=== PATIENT | male | born 1945 | race American Indian/Alaskan Native ===

== ENCOUNTER 2017-07-15 08:06 | Emergency (ER) | payer MEDICARE ==
[2017-07-15 08:24] VITALS: RESP 18; O2SAT 99
--- NOTE | 2017-07-15 09:20 | C.PDOC ---
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 Agnieszka Velazco, and by Dr. Olinda Contreras for evaluation of elevated PSA. Denies n/v/d, abdominal pain, urinary symptoms, or fever. Time Seen by Provider: 07/15/17 08:25 Chief Complaint (Nursing): Medical Clearance History Per: Patient History/Exam Limitations: no limitations Past Medical History Reviewed: Historical Data, Nursing Documentation, Vital Signs Vital Signs: Last Vital Signs Temp 97.7 F 07/15/17 08:17 Pulse 68 07/15/17 08:17 Resp 18 07/15/17 08:17 BP 124/72 07/15/17 08:17 Pulse Ox 99 07/15/17 11:29 - Medical History PMH: Atrial Fibrillation Family History: States: Unknown Family Hx - Social History Hx Alcohol Use: Yes Hx Substance Use: No - Immunization History Hx Tetanus Toxoid Vaccination: No Hx Influenza Vaccination: No Hx Pneumococcal Vaccination: No Review Of Systems Except As Marked, All Systems Reviewed And Found Negative. Constitutional: Negative for: Fever, Chills Cardiovascular: Negative for: Chest Pain, Palpitations Respiratory: Negative for: Cough, Shortness of Breath Gastrointestinal: Negative for: Nausea, Vomiting, Abdominal Pain, Diarrhea Genitourinary: Negative for: Dysuria, Frequency, Hematuria, Penile Discharge Neurological: Negative for: Headache, Dizziness Physical Exam - Physical Exam Appears: Non-toxic, No Acute Distress Skin: Normal Color, Warm, Dry Head: Atraumatic, Normacephalic Eye(s): bilateral: Normal Inspection Oral Mucosa: Moist Neck: Supple Chest: Symmetrical Cardiovascular: Rhythm Regular, No Murmur Respiratory: Normal Breath Sounds, No Rales, No Rhonchi, No Wheezing Gastrointestinal/Abdominal: Soft, No Tenderness Extremity: Capillary Refill (less than 2 seconds), No Deformity, No Swelling, Other (right upper extremity is contracted ) Neurological/Psych: Oriented x3, Normal Speech, Other (right sided weakness greater than left from previous CVA) ED Course And Treatment - Laboratory Results Result Diagrams: 07/15/17 09:40 07/15/17 09:40 O2 Sat by Pulse Oximetry: 99 (RA) Pulse Ox Interpretation: Normal Medical Decision Making Medical Decision Making: Spoke with Dr. Agnieszka Velazco, requesting routine lab work. Blood work, UA ordered and reviewed. Assessment: Elevated PSA Pt was evaluated at bedside by Dr. Agnieszka Velazco. Pt was given Cipro for UTI and was advised to follow up with Dr. Agnieszka Velazco. Disposition Discussed With Dr.: Krystle Velazco Doctor Will See Patient In The: ED Counseled Patient/Family Regarding: Studies Performed, Diagnosis, Need For Followup, Rx Given - Disposition Referrals: Krystle Velazco MD [Staff Provider] - Disposition: HOME/ ROUTINE Disposition Time: 11:25 Condition: STABLE Additional Instructions: follow up with Dr. Velazco in 2 days call to make an appointment take medicine as prescribed return to ER if symptoms worsens Prescriptions: Ciprofloxacin HCl [Cipro] 500 mg PO BID #20 tab Instructions: Urinary Tract Infection in Men (ED) Forms: [facility] (Mohawk), General Discharge Instructions - Clinical Impression Clinical Impression: Urinary tract infection - Scribe Statement The provider has reviewed the documentation as recorded by the Tashiibsusana Contreras All medical record entries made by the Tashiibe were at my direction and personally dictated by me. I have reviewed the chart and agree that the record accurately reflects my personal performance of the history, physical exam, medical decision making, and the department course for this patient. I have also personally directed, reviewed, and agree with the discharge instructions and disposition.
[2017-07-15 09:47] LABS: BASO % 0.6 % (0.0-2.0); EOS # 0.3 K/uL (0.0-0.7); EOS % 3.7 % (0.0-4.0); HEMOGLOBIN 14.6 g/dL (12.0-18.0); LYMPH # 1.8 K/uL (1.0-4.3); LYMPH % 25.4 % (20.0-40.0); MEAN CELL VOLUME 79.3 fL (80.0-94.0); MEAN CORPUSCULAR HEMOGLOBIN 25.5 pg (27.0-31.0); MEAN CORPUSCULAR HGB CONC 32.2 g/dL (33.0-37.0); MEAN PLATELET VOLUME 8.3 fL (7.2-11.7); MONO # 0.7 K/uL (0.0-0.8); MONO % 9.7 % (0.0-10.0); NEUT # 4.3 K/uL (1.8-7.0); NEUT % 60.6 % (50.0-75.0); NRBC % 0.2 % (0.0-2.0); RBC 5.73 Mil/uL (4.40-5.90); RED CELL DISTRIBUTION WIDTH 15.6 % (11.5-14.5); WHITE BLOOD COUNT 7.1 K/uL (4.8-10.8)
[2017-07-15 09:58] LABS: ALB/GLOB RATIO 1.2 (1.0-2.1); ALBUMIN 4.2 g/dL (3.5-5.0); ALT/SGPT 26 U/L (21-72); AST/SGOT 27 U/L (17-59); BLOOD UREA NITROGEN 19 mg/dL (9-20); CALCIUM 8.8 mg/dl (8.6-10.4); GFR AFRICAN-AMERICAN > 60; GFR NON-AFRICAN AMERICAN > 60
[2017-07-15 11:10] LABS: SQUAMOUS EPITHIAL 1 /hpf (0-5); URINE BACTERIA MOD (<OCC); URINE BILIRUBIN NEGATIVE (NEGATIVE); URINE BLOOD NEGATIVE (NEGATIVE); URINE CLARITY Hazy (Clear); URINE COLOR Yellow (YELLOW); URINE GLUCOSE (UA) NORMAL (Normal); URINE HYALINE CAST 0-2 /lpf (0-2); URINE LEUKOCYTE ESTERASE 3+ Leu/uL (Negative); URINE NITRATE NEGATIVE (NEGATIVE); URINE PROTEIN 1+ mg/dL (NEGATIVE); URINE UROBILINOGEN NORMAL mg/dL (0.2-1.0); WBC CLUMPS FEW /hpf
[2017-07-15 11:37] VITALS: BP 114/76; PULSE 72; TEMP 98.1
--- NOTE | 2017-07-16 17:19 | CON ---
DATE: UROLOGY CONSULTATION REQUESTED BY: Rangel Contreras MD. HISTORY OF PRESENT ILLNESS: The patient is a 72-year-old male with an elevated PSA. The patient was seen in the emergency room as an outpatient at [facility] on 07/15/2017. Mr. Archer reports that he has an elevated PSA. There is a positive family history of prostate carcinoma in his cousin. The patient voids with good urinary stream, good control. He has nocturia two to three times per night. No hematuria. No dysuria. No history of urinary tract infection. No history of urolithiasis. The patient has a significant past medical history. The patient drinks one pint of alcohol per day. He smokes one half-pack of cigarettes per day. The patient has history of previous cerebrovascular accident x2. 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 The patient had previous neurosurgery. The second cerebrovascular accident was related to atrial fibrillation. The patient reports no chest pain. The patient has hemiparesis. The patient is not able to walk. He uses a wheelchair. PHYSICAL EXAMINATION: GENERAL: The patient is a well-developed, well-nourished male appearing his stated age of 72. ABDOMEN: Soft, nontender, nondistended. No mass or organomegaly. BACK: No CVA tenderness. GENITALIA: Without inflammation. RECTAL: Normal sphincter tone. Prostate is enlarged. Prostate is approximately 35 to 40 g in size. Prostate is smooth and firm and symmetric without fixation, induration, or nodularity. IMPRESSION: Benign prostatic hypertrophy on physical examination. History of elevated serum PSA. Differential diagnosis of elevated prostate-specific antigen includes benign prostatic hypertrophy, prostatic inflammation, and/or prostate carcinoma. The patient has significant other medical problems including cerebrovascular disease, cardiovascular disease. The patient also has tobacco and alcohol use. RECOMMENDATION AND PLAN: Urinalysis. Urine culture. Serum PSA, total and percent free. Possible need for MRI. Possible need for prostate biopsy. I encouraged the patient to stop smoking and drinking alcohol. Further therapy to follow according to the patient's clinical course as well as results of above. Krystle Velazco MD cc: Rangel Contreras MD [facility] # [id number]
[2017-07-16 21:28] LABS: TOTAL PSA 6.8 ng/mL (< or = 4.0)
== END 2017-07-15 11:39 | disposition home or self-care (01) ==
LOC: C.ER 08:06
DX: N39.0 Urinary tract infection, site not specified (principal); N40.0 Benign prostatic hyperplasia without lower urinary tract symptoms

== ENCOUNTER 2017-10-07 07:05 | Day surgery (SDC) | payer MEDICARE, OTHER ==
[2017-09-17 09:11] VITALS: BMI 23.3
[2017-10-07 07:48] VITALS: O2SAT 100
[2017-10-07] MEDS ORDERED: Lactated Ringer's 1,000 ML IV ONE ×2 (10:40→11:15)
[2017-10-07] MEDS ORDERED: HYDROmorphone 0.5 mg/0.5 ml ISec IVP PRN (11:16)
--- NOTE | 2017-10-07 11:40 | PCM.SURG1 ---
Surgeon's Initial Post Op Note - Surgeon's Notes Surgeon: Agnieszka Velazco [employer] Crm Developer: none Type of Anesthesia: IV Sedation Pre-Operative Diagnosis: BPH. UTI Operative Findings: same Post-Operative Diagnosis: same Operation Performed: cysto. bilat rtg pyelogram. fulg of prostate. eua Specimen/Specimens Removed: urine Estimated Blood Loss: EBL {In ML}: 0 Blood Products Given: N/A Post-Op Condition: Good Date of Surgery/Procedure: 10/07/17 Time of Surgery/Procedure: 11:20
[2017-10-07 12:23] VITALS: BP 110/91; PULSE 82; RESP 18; TEMP 97
--- NOTE | 2017-10-07 15:25 | RAD ---
PROCEDURE: Intraoperative Fluoroscopy. HISTORY: UTI,BPH FINDINGS: Fluoroscopic assistance was provided for bilateral retrograde studies. Please refer to the operative report from Dr. ESQUIVEL, CAGUAS. Total fluoroscopic time (continuous mode) utilized during the procedure 7.9 (seconds). Total exam DLP: (mGy) 4.95
--- NOTE | 2017-10-07 18:06 | RAD ---
HISTORY: UTI,BPH COMPARISON: No prior. FINDINGS: BOWEL: Constipation without fecal impaction or obstruction. BONES: Normal. OTHER FINDINGS: None. IMPRESSION: No significant or acute findings to account for/ related to the clinical presentation.
--- NOTE | 2017-10-14 02:39 | OP ---
PROCEDURE DATE: 10/07/2017 UROLOGY OPERATIVE REPORT PREOPERATIVE DIAGNOSES: Benign prostatic hypertrophy. History of urinary tract infection. POSTOPERATIVE DIAGNOSES: Benign prostatic hypertrophy. History of urinary tract infection. PROCEDURE: Cystoscopy. Bilateral retrograde pyelogram. Fulguration of prostate. Exam under anesthesia. DESCRIPTION OF PROCEDURE: As follows. The patient was placed in lithotomy position. Genitalia prepped and draped sterilely. Preop perioperative antibiotics were administered. IV sedation was administered by the anesthesiologist. Procedure was performed under video endoscopic control as well as under fluoroscopic control. A 22-Malawian cystoscope sheath was introduced under direct vision. Urethra, prostate, and bladder were inspected with 30-degree and 70-degree lenses. FINDINGS: There was no stricture in the anterior urethra. There was evidence of trilobar prostatic hypertrophy. There was a small intravesical middle lobe. There was moderate bladder trabeculation. There was moderate contact bleeding from the surface of the prostate. Prostatic urethra was occlusive. Prostatic urethra was 3.5 cm in length. There was moderate bladder trabeculation. There was no bladder tumor. There was no bladder stone. Retrograde pyelogram demonstrated no evidence of obstruction or filling defect within the ureters or collecting systems. Post drainage film was obtained as well and demonstrated fair to good drainage from the kidneys. The bladder was reinspected with 70-degree lens to confirm the above findings. The area of the bleeding from the prostate was fulgurated with electrocautery and ball electrode. Hemostasis was complete. The bladder was then drained. Cystoscope sheath removed. Exam under anesthesia/rectal examination was performed. There was prostatic enlargement, which was firm and smooth and benign and symmetric without fixation, induration or nodularity. There was no abnormal pelvic mass. The patient was returned to the supine position. The patient tolerated the procedure without complication. Krystle Velazco MD
== END 2017-10-07 12:37 | disposition home or self-care (01) ==
LOC: C.SDS 07:05
PROVIDERS: ATTEND Urology
DX: N40.1 Benign prostatic hyperplasia with lower urinary tract symptoms (principal); N39.0 Urinary tract infection, site not specified; N40.0 Benign prostatic hyperplasia without lower urinary tract symptoms
CPT/HCPCS: 52648; 74018; 76000; 87086; 87181; C1758; J7120

== ENCOUNTER 2018-03-07 13:47 | Inpatient (IN) | payer MEDICARE, OTHER ==
[2018-03-07 13:47] VITALS: BMI 23.3
[2018-03-07 15:34] LABS: BASO # 0.1 K/uL (0.0-0.2); BASO % 0.7 % (0.0-2.0); EOS # 0.3 K/uL (0.0-0.7); EOS % 2.7 % (0.0-4.0); HEMOGLOBIN 12.7 g/dL (12.0-18.0); LYMPH # 1.4 K/uL (1.0-4.3); LYMPH % 13.4 % (20.0-40.0); MEAN CELL VOLUME 76.2 fL (80.0-94.0); MEAN CORPUSCULAR HEMOGLOBIN 24.7 pg (27.0-31.0); MEAN CORPUSCULAR HGB CONC 32.4 g/dL (33.0-37.0); MEAN PLATELET VOLUME 8.1 fL (7.2-11.7); MONO % 9.7 % (0.0-10.0); NEUT # 7.7 K/uL (1.8-7.0); NEUT % 73.5 % (50.0-75.0); RBC 5.15 Mil/uL (4.40-5.90); RED CELL DISTRIBUTION WIDTH 14.2 % (11.5-14.5); WHITE BLOOD COUNT 10.4 K/uL (4.8-10.8)
[2018-03-07 15:39] LABS: SQUAMOUS EPITHIAL < 1 /hpf (0-5); URINE BACTERIA MOD (<OCC); URINE BILIRUBIN NEGATIVE (NEGATIVE); URINE BLOOD NEGATIVE (NEGATIVE); URINE CLARITY Clear (Clear); URINE COLOR Yellow (YELLOW); URINE GLUCOSE (UA) NORMAL (Normal); URINE PROTEIN 2+ mg/dL (NEGATIVE); URINE UROBILINOGEN NORMAL mg/dL (0.2-1.0)
[2018-03-07 15:40] LABS: URINE LEUKOCYTE ESTERASE 1+ Leu/uL (Negative)
[2018-03-07 15:45] LABS: ALB/GLOB RATIO 1.4 (1.0-2.1); ALBUMIN 4.2 g/dL (3.5-5.0); ALT/SGPT 26 U/L (21-72); AST/SGOT 21 U/L (17-59); BLOOD UREA NITROGEN 12 mg/dL (9-20); CALCIUM 9.1 mg/dl (8.6-10.4); GFR NON-AFRICAN AMERICAN > 60
--- NOTE | 2018-03-07 15:46 | C.PDOC ---
History Of Present Illness 72 y/o male with history of multiple strokes presents to ED with c/o lump to right side of neck associated with painful swallowing. Patient states he was recently treated for UTI, finished medication and called PMD for symptoms who advised he come to ED. Patient c/o mild headache since yesterday and denies ear pain, fever, chills, nausea, vomiting or any other complaints at this time. Time Seen by Provider: 03/07/18 14:34 Chief Complaint (Nursing): ENT Problem History Per: Patient History/Exam Limitations: no limitations Onset/Duration Of Symptoms: Days Current Symptoms Are (Timing): Still Present Past Medical History Reviewed: Historical Data, Nursing Documentation, Vital Signs Vital Signs: Last Vital Signs Temp 98.9 F 03/07/18 18:30 Pulse 65 03/07/18 18:30 Resp 18 03/07/18 18:30 BP 150/86 03/07/18 18:30 Pulse Ox 100 03/07/18 19:24 - Medical History PMH: Atrial Fibrillation, COPD, Depression, HTN, Pneumonia, Seizures Comment Only: Cardia Arrhythmia (SVT DURING COLONOSCOPY) Surgical History: Endoscopy Family History: States: No Known Family Hx - Social History Hx Alcohol Use: Yes Hx Substance Use: No - Immunization History Hx Tetanus Toxoid Vaccination: No Hx Influenza Vaccination: No Hx Pneumococcal Vaccination: No Review Of Systems Constitutional: Negative for: Fever, Chills ENT: Positive for: Throat Pain Cardiovascular: Negative for: Chest Pain Respiratory: Negative for: Cough Gastrointestinal: Negative for: Nausea, Vomiting Musculoskeletal: Positive for: Neck Pain Skin: Negative for: Rash Physical Exam - Physical Exam Appears: Non-toxic, No Acute Distress, Other (older than age) Skin: Warm, Dry, No Rash Head: Atraumatic, Normacephalic Eye(s): bilateral: Normal Inspection Oral Mucosa: Moist Throat: Erythema, No Drooling Neck: Other (tender firm mass to lateral right neck. Old tracheostomy scar) Cardiovascular: Rhythm Regular Respiratory: Normal Breath Sounds, No Rales, No Rhonchi, No Wheezing Gastrointestinal/Abdominal: Soft, No Tenderness, No Guarding, No Rebound Neurological/Psych: Oriented x3, Normal Speech, Normal Cognition ED Course And Treatment - Laboratory Results Result Diagrams: 03/07/18 15:30 03/07/18 15:30 O2 Sat by Pulse Oximetry: 100 (RA) Pulse Ox Interpretation: Normal - CT Scan/US soft tissue neck Other Rad Studies (CT/US): Radiology Report Reviewed CT/US Interpretation: Findings most likely represent a inflammatory/infectious process of the right submandibular gland with surrounding infiltration changes of the subcutaneous tissues and thickening of the platysma and skin surface. Inflammatory changes extend into the subcutaneous tissues of the submandibular region and base of neck anteriorly right greater than left. No evidence of submandibular gland or submandibular duct stones seen. Medical Decision Making Medical Decision Making: Plan: Labs, UA, CT neck, Pending creatinine for CT scan with or without Contrast discussed with Dr Agnieszka Todd, [facility] for uti, get uc. several calls made to hospitalist between 1830 pm and 1900, await return call [address] Benjie Contreras, will admit to Dr Patterson, overnight hospitalist. Disposition Discussed With DrDeni: Pedro Pablo Patterson Doctor Will See Patient In The: Hospital - Disposition Disposition: HOSPITALIZED Disposition Time: 19:42 Condition: GOOD Forms: [facility] (Spanish) - Clinical Impression Clinical Impression: Submandibular gland infection, Urinary tract infection - PA / INTEGRATION LEAD / Resident Statement MD/DO has reviewed & agrees with the documentation as recorded. - Scribe Statement The provider has reviewed the documentation as recorded by the Tashiibsusana Sandhu All medical record entries made by the Jesse were at my direction and personally dictated by me. I have reviewed the chart and agree that the record accurately reflects my personal performance of the history, physical exam, medical decision making, and the department course for this patient. I have also personally directed, reviewed, and agree with the discharge instructions and disposition.
[2018-03-07] MEDS ORDERED: Iodixanol 320 MG/ML 100 ML BOTTLE IV ONE (16:25)
--- NOTE | 2018-03-07 18:17 | CT ---
Date of service: 03/07/2018 PROCEDURE: CT NECK WITH CONTRAST HISTORY: mass right side neck COMPARISON: None available. TECHNIQUE: CT of the neck with intravenous contrast. Coronal and sagittal reformats generated. Intravenous contrast dose: 100 cc Visipaque [id number] Radiation dose: DLP 522.39 mGy-cm This CT exam was performed using one or more of the following dose reduction techniques: Automated exposure control, adjustment of the mA and/or kV according to patient size, and/or use of iterative reconstruction technique. FINDINGS: NASOPHARYNX: Unremarkable. SUPRAHYOID NECK: There Unremarkable oropharynx, oral cavity, parapharyngeal space and retropharyngeal space. INFRAHYOID NECK: Unremarkable larynx, hypopharynx, and supraglottic space. Vocal cords intact. MASS: None. GLANDS: The right submandibular gland is enlarged and edematous in appearance. In addition, there are infiltration changes in the adjacent subcutaneous fat surrounding the subcutaneous fat along the inferior margin of the gland more so along the inferolateral border. In addition, there is thickening of the platysma and infiltration changes of the subcutaneous fat superficial to the platysma as well extending inferiorly into the anterior inferior base of the neck of right greater than left. Findings most likely represent inflammatory and/or infectious process of the right submandibular gland. No definitive evidence of calculi along the within the gland or along the distribution of the submandibular duct. The the LYMPH NODES: Multiple bilateral level 1 and level 2 lymph nodes are present none of which appear significantly enlarged. CERVICAL SPINE: No evidence of acute compression fractures no retropulsed fragments. Vertebral bodies exhibit normal stature. There is reversal of the normal cervical lordosis which could be due to patient positioning gantry however underlying element of muscle spasm not excluded. VASCULAR STRUCTURES: Unremarkable. The visualized anterior and posterior cervical circulation is patent throughout with no evidence of occlusion significant stenosis or evidence of pseudoaneurysm formation. OTHER FINDINGS: There appears be some minimal linear atelectasis and or scarring changes both lung apices. IMPRESSION: Findings most likely represent a inflammatory/infectious process of the right submandibular gland with surrounding infiltration changes of the subcutaneous tissues and thickening of the platysma and skin surface. Inflammatory changes extend into the subcutaneous tissues of the submandibular region and base of neck anteriorly right greater than left. No evidence of submandibular gland or submandibular duct stones seen.
[2018-03-07] MEDS ORDERED: Piperacillin/Tazobact 3.375 gm 100 ML IVPB STA (18:31)
[2018-03-07] MEDS ORDERED: Vancomycin 1 GM in Sodium Chloride 0.9% 200 ML IVPB STA (18:35)
[2018-03-07] MEDS ORDERED: Piperacillin/Tazobact 3.375 gm 100 ML IVPB ONE (19:24)
[2018-03-07] MEDS ORDERED: Vancomycin 1 GM 1 GM/250 ML BAG IVPB ONE ×2 (20:07→21:00)
--- NOTE | 2018-03-07 23:06 | CP.PCM.HP ---
<SegundoNaeem M - Last Filed: 03/08/18 06:54> History of Present Illness - History of Present Illness History of Present Illness: PGY1 H&P for Dr. Patterson 72 M w/ PMHx of CVA with right sided weakness, HTN, paroxysmal atrial fibrillation, COPD, seizure, history of coma x 4 years (woke up mid 2015, during time of his coma he had tracheostomy) presents to ED with a right side lump in submandibular region. Patient states it appeared suddenly 3 days prior and was worse 1 day prior. Patient states it is tender on palpation and it is painful when eating. Patient states he was on antibiotics 1 weeks prior for a UTI that was treated by his urologist. Patient states he does have decreased breathing secondary to inflammation of his left nare that is currently being managed by his ENT outpatient. Patient denies chest pain, abdominal pain, constipation, trouble with urination. PMD: Dr. 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 absent: Nasal Congestion, Change in Voice, Hoarsness, Sore Throat - Cardiovascular Cardiovascular: absent: Chest Pain, Dyspnea, Leg Edema, Palpitations - Respiratory Respiratory: absent: Cough, Dyspnea, Pain on Inspiration - Gastrointestinal Gastrointestinal: absent: Bloating, Diarrhea, Nausea, Vomiting - Genitourinary Genitourinary: absent: Hematuria, Urinary Hesitance, Bladder Distension - Musculoskeletal Musculoskeletal: Muscle Weakness. absent: Arthralgias - Integumentary Integumentary: absent: Swelling - Neurological Neurological: absent: Behavioral Changes, Disequilibrium, Dizziness, Headaches - Psychiatric Psychiatric: absent: Behavioral Changes, Confusion, Mood Swings Past Patient History - Infectious Disease Hx of Infectious Diseases: None - Past Medical History & Family History Past Medical History?: Yes - Past Social History Smoking Status: Heavy Smoker > 10 Cigarettes Daily - CARDIAC Hx Atrial Fibrillation: Yes Hx Cardia Arrhythmia: (SVT DURING COLONOSCOPY) Hx Hypertension: Yes - PULMONARY Hx Chronic Obstructive Pulmonary Disease (COPD): Yes Hx Pneumonia: Yes - NEUROLOGICAL Hx Seizures: Yes - HEENT Hx HEENT Problems: No - RENAL Hx Chronic Kidney Disease: No - ENDOCRINE/METABOLIC Hx Endocrine Disorders: No - HEMATOLOGICAL/ONCOLOGICAL Hx Blood Disorders: No - INTEGUMENTARY Hx Dermatological Problems: Yes Other/Comment: DISCOLORIZATION BOTH FEET - MUSCULOSKELETAL/RHEUMATOLOGICAL Other/Comment: Uses wheelchair - GASTROINTESTINAL Hx Gastrointestinal Disorders: No - GENITOURINARY/GYNECOLOGICAL Hx Genitourinary Disorders: Yes Hx Prostate Problems: Yes Hx Urinary Tract Infection: Yes - PSYCHIATRIC Hx Depression: Yes Hx Substance Use: No - SURGICAL HISTORY Hx Surgeries: Yes Other/Comment: CRANIOTOMY s/p RUPTURED ANEURYSM, S/P TRACHEOSTOMY, S/P PEG - ANESTHESIA Hx Anesthesia: Yes Meds Allergies/Adverse Reactions: Allergies Allergy/AdvReac Type Severity Reaction Status Date / Time No Known Allergies Allergy Verified 03/07/18 14:18 Physical Exam - Head Exam Head Exam: ATRAUMATIC, NORMAL INSPECTION, NORMOCEPHALIC - Eye Exam Eye Exam: EOMI, Normal appearance, PERRL Pupil Exam: NORMAL ACCOMODATION - ENT Exam ENT Exam: Mucous Membranes Moist Additional comments: Patient has 1 cm scar from prior tracheostomy Submandibular gland inflammation on R side - Neck Exam Neck exam: Negative for: Lymphadenopathy - Respiratory Exam Respiratory Exam: NORMAL BREATHING PATTERN. absent: Rales, Rhonchi, Wheezes - Cardiovascular Exam Cardiovascular Exam: +S1, +S2. absent: Irregular Rhythm, Systolic Murmur - GI/Abdominal Exam GI & Abdominal Exam: Normal Bowel Sounds, Soft. absent: Distended, Firm, Guarding Additional comments: scar from previous peg tube insertion - Extremities Exam Extremities exam: Positive for: full ROM, normal inspection. 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 - Back Exam Back exam: absent: CVA tenderness (L), CVA tenderness (R) - Neurological Exam Neurological exam: Alert, CN II-XII Intact, Oriented x3 - Psychiatric Exam Psychiatric exam: Normal Affect, Normal Mood - Skin Skin Exam: Dry, Intact, Normal Color, Warm Results - Vital Signs Recent Vital Signs: Last Vital Signs Temp 98.4 F 03/07/18 22:16 Pulse 62 03/07/18 22:16 Resp 20 03/07/18 22:16 BP 136/81 03/07/18 22:16 Pulse Ox 100 03/07/18 22:16 - Labs Result Diagrams: 03/07/18 15:30 03/07/18 15:30 Labs: Laboratory Results - last 24 hr 03/07/18 03/07/18 03/07/18 15:20 15:30 15:30 WBC 10.4 RBC 5.15 Hgb 12.7 Hct 39.2 MCV 76.2 L D MCH 24.7 L MCHC 32.4 L RDW 14.2 Plt Count 256 MPV 8.1 Neut % (Auto) 73.5 Lymph % (Auto) 13.4 L [place] % (Auto) 9.7 Eos % (Auto) 2.7 Baso % (Auto) 0.7 Neut # (Auto) 7.7 H Lymph # (Auto) 1.4 [place] # (Auto) 1.0 H Eos # (Auto) 0.3 Baso # (Auto) 0.1 Sodium 140 Potassium 4.5 Chloride 105 Carbon Dioxide 27 Anion Gap 13 BUN 12 Creatinine 0.8 Est GFR ( Amer) > 60 Est GFR (Non-Af Amer) > 60 Random Glucose 87 Calcium 9.1 Total Bilirubin 0.5 AST 21 ALT 26 Alkaline Phosphatase 219 H Total Protein 7.1 Albumin 4.2 Globulin 3.0 Albumin/Globulin Ratio 1.4 Urine Color Yellow Urine Clarity Clear Urine pH 6.0 Ur Specific [place] 1.013 Urine Protein 2+ H Urine Glucose (UA) Normal Urine Ketones Negative Urine Blood Negative Urine Nitrate Negative Urine Bilirubin Negative Urine Urobilinogen Normal Ur Leukocyte Esterase 1+ H Urine WBC (Auto) 15 H Urine RBC (Auto) 1 Ur Squamous Epith Cells < 1 Urine Bacteria Mod H Grp A Beta Strep Ag 03/07/18 15:57 WBC RBC Hgb Hct MCV MCH MCHC RDW Plt Count MPV Neut % (Auto) Lymph % (Auto) [place] % (Auto) Eos % (Auto) Baso % (Auto) Neut # (Auto) Lymph # (Auto) [place] # (Auto) Eos # (Auto) Baso # (Auto) Sodium Potassium Chloride Carbon Dioxide Anion Gap BUN Creatinine Est GFR ( Amer) Est GFR (Non-Af Amer) Random Glucose Calcium Total Bilirubin AST ALT Alkaline Phosphatase Total Protein Albumin Globulin Albumin/Globulin Ratio Urine Color Urine Clarity Urine pH Ur Specific [place] Urine Protein Urine Glucose (UA) Urine Ketones Urine Blood Urine Nitrate Urine Bilirubin Urine Urobilinogen Ur Leukocyte Esterase Urine WBC (Auto) Urine RBC (Auto) Ur Squamous Epith Cells Urine Bacteria Grp A Beta Strep Ag Negative Assessment & Plan - Assessment and Plan (Free Text) Assessment: 72 year old male w/ PMHx CVA with right sided weakness, HTN, paroxysmal atrial fibrillation, COPD, seizure, history of coma x 4 years (woke up mid 2015, during time of his coma he had tracheostomy) presents to ED with a right side lump in submandibular region for 3 days: 1) Sialolithiasis - CT: Findings most likely represent a inflammatory/infectious process of the right submandibular gland with surrounding infiltration changes of the subcutaneous tissues and thickening of the platysma and skin surface. Inflammatory changes extend into the subcutaneous tissues of the submandibular region and base of neck anteriorly right greater than left. No evidence of submandibular gland or submandibular duct stones seen - Ceftriaxone 1g daily - Clindamyicin 300 mg Q6 - Toradol 30 mg once - F/u ENT Dr. Kateryna garrido 2) UTI - UA leukocyte esterase 1+ - WBC 15 - on ceftriaxone 1g daily 3) Hx of Alcohol use - unable to obtain when patients last drink was - transfer to [facility] - Folic acid, thiamine, multi vitamin - Librium 15 mg QID, hold if lethargic 4) Low MCV - F/u Iron levels 5) Hx HTN - currently on no medication, will monitor, add therapy as necessary 6) Hx Paroxymal Afib - continue home medication: Aspirin 81mg daily 7) Hx COPD - continue home medications: Advair Diskus 250/50 1 puff Q12 Mometasone 220 puff QPM 8) Hx Seizure - continue home medication: Phenytoin 100 mg BID Gabapentin 300 mg BID 9) Prophylaxis - DVT: heparin 5000 U Q12 [facility] <Pedro Pablo Patterson P - Last Filed: 03/08/18 07:26> Results - Vital Signs Recent Vital Signs: Last Vital Signs Temp 97.9 F 03/08/18 05:10 Pulse 55 L 03/08/18 05:10 Resp 20 03/08/18 05:10 BP 132/76 03/08/18 05:10 Pulse Ox 97 03/08/18 05:10 - Labs Result Diagrams: 03/07/18 15:30 03/07/18 15:30 Labs: Laboratory Results - last 24 hr 03/07/18 03/07/18 03/07/18 15:20 15:30 15:30 WBC 10.4 RBC 5.15 Hgb 12.7 Hct 39.2 MCV 76.2 L D MCH 24.7 L MCHC 32.4 L RDW 14.2 Plt Count 256 MPV 8.1 Neut % (Auto) 73.5 Lymph % (Auto) 13.4 L [place] % (Auto) 9.7 Eos % (Auto) 2.7 Baso % (Auto) 0.7 Neut # (Auto) 7.7 H Lymph # (Auto) 1.4 [place] # (Auto) 1.0 H Eos # (Auto) 0.3 Baso # (Auto) 0.1 Sodium 140 Potassium 4.5 Chloride 105 Carbon Dioxide 27 Anion Gap 13 BUN 12 Creatinine 0.8 Est GFR ( Amer) > 60 Est GFR (Non-Af Amer) > 60 Random Glucose 87 Calcium 9.1 Total Bilirubin 0.5 AST 21 ALT 26 Alkaline Phosphatase 219 H Total Protein 7.1 Albumin 4.2 Globulin 3.0 Albumin/Globulin Ratio 1.4 Urine Color Yellow Urine Clarity Clear Urine pH 6.0 Ur Specific [place] 1.013 Urine Protein 2+ H Urine Glucose (UA) Normal Urine Ketones Negative Urine Blood Negative Urine Nitrate Negative Urine Bilirubin Negative Urine Urobilinogen Normal Ur Leukocyte Esterase 1+ H Urine WBC (Auto) 15 H Urine RBC (Auto) 1 Ur Squamous Epith Cells < 1 Urine Bacteria Mod H Grp A Beta Strep Ag 03/07/18 15:57 WBC RBC Hgb Hct MCV MCH MCHC RDW Plt Count MPV Neut % (Auto) Lymph % (Auto) [place] % (Auto) Eos % (Auto) Baso % (Auto) Neut # (Auto) Lymph # (Auto) [place] # (Auto) Eos # (Auto) Baso # (Auto) Sodium Potassium Chloride Carbon Dioxide Anion Gap BUN Creatinine Est GFR ( Amer) Est GFR (Non-Af Amer) Random Glucose Calcium Total Bilirubin AST ALT Alkaline Phosphatase Total Protein Albumin Globulin Albumin/Globulin Ratio Urine Color Urine Clarity Urine pH Ur Specific [place] Urine Protein Urine Glucose (UA) Urine Ketones Urine Blood Urine Nitrate Urine Bilirubin Urine Urobilinogen Ur Leukocyte Esterase Urine WBC (Auto) Urine RBC (Auto) Ur Squamous Epith Cells Urine Bacteria Grp A Beta Strep Ag Negative Attending/Attestation - Attestation I have personally seen and examined this patient.: Yes I have fully participated in the care of the patient.: Yes I have reviewed all pertinent clinical information: Yes Notes (Text): Asssessment * Inflammation of right submandibular gland likely form obstruction of the duct , without abscess, patient not toxic, afebrile * H/o hemorrhagic stroke form ruptured aneurysm, coma with h/o trache and peg, now removed, has residual right arm contracture * H/o PAF, now sinus * Microcytic anemia * Tobacco and alcohol abuse. Plan * Abx, clinda and rocephin * prn anti-inflammatory, reduce duct swelling with massage * ENT consult * Iron studies if low iron, then should be evaluated by GI out patient * Librium scheduled, thiamine, mvt, fa, may need prn meds as well * Counselled about tobacco and alcohol cessation. * Gi/dvt prophylaxis 03/08/18 07:18
[2018-03-07] MEDS: Clindamycin 300 MG in Sodium Chloride 0.9% 50 ML IVPB SCH (23:50)
[2018-03-08] MEDS: Clindamycin 300 MG in Sodium Chloride 0.9% 50 ML IVPB SCH ×4 (04:35→23:25)
[2018-03-08] MEDS ORDERED: Fluticasone-Salmeterol 250-50mcg Diskus INH SCH (08:00)
[2018-03-08] MEDS: Multiple Vitamins Tab PO SCH (09:24)
--- NOTE | 2018-03-08 12:36 | CP.PCM.PN ---
<Js Lin - Last Filed: 03/08/18 16:20> Subjective - Date & Time of Evaluation Date of Evaluation: 03/08/18 Time of Evaluation: 09:30 - Subjective Subjective: PGY1 Medicine Progress Note for Dr. Hahn Patient was seen and examined this AM, resting comfortably and in no acute distress. No acute overnight events reported. Patient states it it somewhat difficult to eat due to partial obstruction from R sided submandibular swelling. We talked to him about a treatment of solumedrol for his swelling, per ENT recommendations. Patient was reluctant to receive solumedrol but agreed to initial dose treatment with further tx, if needed. No fevers/chill, headaches , dizziness, chest pain, palpitations, abdominal pain, nausea/vomiting/diarrhea/ constipation. Objective - Vital Signs/Intake and Output Vital Signs (last 24 hours): Temp Pulse Resp BP Pulse Ox 97.9 F 74 20 143/81 97 03/08/18 07:18 03/08/18 07:59 03/08/18 07:18 03/08/18 07:18 03/08/18 07:59 - Medications Medications: Current Medications Aspirin (Aspirin Chewable) 81 mg PO DAILY [facility] Last Admin: 03/08/18 09:23 Dose: 81 mg Chlordiazepoxide (Librium) 15 mg PO Q6 [facility] Last Admin: 03/08/18 12:06 Dose: Not Given Folic Acid (Folic Acid) 1 mg PO DAILY [facility] Last Admin: 03/08/18 09:24 Dose: 1 mg Gabapentin (Neurontin) 300 mg PO BID [facility] Last Admin: 03/08/18 09:24 Dose: 300 mg Heparin Sodium (Porcine) (Heparin) 5,000 units SC Q12 [facility] Last Admin: 03/08/18 09:25 Dose: Not Given Ceftriaxone Sodium 1 gm/ (Sodium Chloride) 100 mls @ 100 mls/hr IVPB DAILY [facility] PRN Reason: Protocol Last Admin: 03/08/18 10:37 Dose: 100 mls/hr Clindamycin Phosphate 300 mg/ (Sodium Chloride) 52 mls @ 100 mls/hr IVPB Q6H [facility] PRN Reason: Protocol Last Admin: 03/08/18 11:57 Dose: 100 mls/hr Multivitamins (Hexavitamin) 1 tab PO DAILY [facility] Last Admin: 03/08/18 09:24 Dose: 1 tab Phenytoin Sodium (Dilantin) 100 mg PO BID [facility] Last Admin: 03/08/18 09:24 Dose: 100 mg Fluticasone/Salmeterol (Advair Diskus 250/50) 1 puff INH RQ12 [facility] Thiamine HCl (Vitamin B1 Tab) 100 mg PO DAILY [facility] Last Admin: 03/08/18 09:24 Dose: 100 mg - Labs Labs: 03/07/18 15:30 03/07/18 15:30 - Constitutional Appears: Non-toxic, No Acute Distress - Head Exam Head Exam: ATRAUMATIC, NORMAL INSPECTION, NORMOCEPHALIC - Eye Exam Eye Exam: EOMI, Normal appearance - ENT Exam ENT Exam: Mucous Membranes Moist Additional comments: Marked inflammation of R submandibular gland, mild TTP - Neck Exam Neck Exam: Normal Inspection - Respiratory Exam Respiratory Exam: Clear to Ausculation Bilateral, NORMAL BREATHING PATTERN. absent: Rales, Rhonchi, Wheezes - Cardiovascular Exam Cardiovascular Exam: REGULAR RHYTHM, +S1, +S2 - GI/Abdominal Exam GI & Abdominal Exam: Soft, Normal Bowel Sounds. absent: Distended, Firm, Guarding, Rigid, Tenderness, Mass, Rebound - Extremities Exam Extremities Exam: Normal Capillary Refill, Normal Inspection. absent: Pedal Edema, Tenderness - Back Exam Back Exam: NORMAL INSPECTION - Neurological Exam Neurological Exam: Alert, Awake, Oriented x3 - Psychiatric Exam Psychiatric exam: Normal Affect, Normal Mood - Skin Skin Exam: Dry, Intact, Normal Color, Warm Assessment and Plan - Assessment and Plan (Free Text) Assessment: 72 M with PMHx of CVA with right sided weakness, HTN, paroxysmal atrial fibrillation, COPD, seizure, history of coma x 4 years (woke up mid 2015, during time of his coma he had tracheostomy) presents to ED with a right side lump in submandibular region. Plan: 1. Inflammation of R submandibular gland--likely 2/2 sialolithiasis, w/o abscess -patient is nontoxic, afebrile -f/u ENT recs (Dr. Avendaño) Imaging: -CT head (03/07): most likely represent a inflammatory/infectious process of the right submandibular gland with surrounding infiltration changes of the subcutaneous tissues and thickening of the platysma and skin surface. No evidence of submandibular gland or submandibular duct stones seen. Medications: -Rocephin 1 gm daily -Clindamycin 300 mg q6 -Toradol 30 mg Once -Solumedrol 125 mg IV Once 2. UTI - UA: LE 1+, bacteria moderate - WBC 10.4 - Rocephin 1gm daily 3. Hx of Alcohol use - unable to obtain when patient's last drink was - telemetry monitoring Medications -Folic acid 1 mg PO daily -Thiamine 100 mg PO daily -Multivitamin 1 tab PO daily - Librium 15 mg PO q6, hold if lethargic--pt refusing librium (03/08) 4. Low MCV - F/u Iron levels--pt refusing blood work (03/08) 5) Hx of HTN - currently on no medication, will monitor, add therapy as necessary 6. Hx Paroxymal Afib - continue home medication: -Aspirin 81mg daily 7. Hx of COPD - continue home medications: -Advair Diskus 250/50 1 puff Q12 - Mometasone 220 puff QPM 8. Hx of Seizure - continue home medication: -Phenytoin 100 mg BID - Gabapentin 300 mg BID 9. Prophylaxis, Diet, Disposition - DVT: heparin 5000 units SC Q12; SCDs - heart healthy diet Case discussed with Dr. Selma Lin DO, PGY1 <Jam Hahn H - Last Filed: 03/08/18 16:47> Objective - Vital Signs/Intake and Output Vital Signs (last 24 hours): Temp Pulse Resp BP Pulse Ox 99.0 F 62 20 152/88 H 97 03/08/18 15:00 03/08/18 15:11 03/08/18 15:00 03/08/18 15:00 03/08/18 15:15 - Medications Medications: Current Medications Aspirin (Aspirin Chewable) 81 mg PO DAILY [facility] Last Admin: 03/08/18 09:23 Dose: 81 mg Chlordiazepoxide (Librium) 15 mg PO Q6 [facility] Last Admin: 03/08/18 12:06 Dose: Not Given Folic Acid (Folic Acid) 1 mg PO DAILY [facility] Last Admin: 03/08/18 09:24 Dose: 1 mg Gabapentin (Neurontin) 300 mg PO BID [facility] Last Admin: 03/08/18 09:24 Dose: 300 mg Heparin Sodium (Porcine) (Heparin) 5,000 units SC Q12 [facility] Last Admin: 03/08/18 09:25 Dose: Not Given Ceftriaxone Sodium 1 gm/ (Sodium Chloride) 100 mls @ 100 mls/hr IVPB DAILY [facility] PRN Reason: Protocol Last Admin: 03/08/18 10:37 Dose: 100 mls/hr Clindamycin Phosphate 300 mg/ (Sodium Chloride) 52 mls @ 100 mls/hr IVPB Q6H [facility] PRN Reason: Protocol Last Admin: 03/08/18 11:57 Dose: 100 mls/hr Multivitamins (Hexavitamin) 1 tab PO DAILY [facility] Last Admin: 03/08/18 09:24 Dose: 1 tab Phenytoin Sodium (Dilantin) 100 mg PO BID [facility] Last Admin: 03/08/18 09:24 Dose: 100 mg Fluticasone/Salmeterol (Advair Diskus 250/50) 1 puff INH RQ12 [facility] Thiamine HCl (Vitamin B1 Tab) 100 mg PO DAILY [facility] Last Admin: 03/08/18 09:24 Dose: 100 mg - Labs Labs: 03/07/18 15:30 03/07/18 15:30 Attending/Attestation - Attestation I have personally seen and examined this patient.: Yes I have fully participated in the care of the patient.: Yes I have reviewed all pertinent clinical information, including history, physical exam and plan: Yes Notes (Text): 03/08/18 16:33 Medical attending: Patient was seen and examined by me. Agree with the above note by the resident The patient was not in any acute distress. Earlier we were advised by ENT to give solumedrol as this may help with the patient's symptoms. Will continue the IV abx for the time being as well. He was not having pain at rest. The area of swelling had already been outlined. It was mildy tender with palpation. Patient was not short of breath, he was speaking in full sentences. Overnight team was concerned of potential alcohol withdrawl, there is PRN orders for librium. Jam Hahn
[2018-03-08] MEDS ORDERED: Mometasone 220 mcg/puff-14 puff Inh INH SCH (18:00)
--- NOTE | 2018-03-08 20:15 | CON ---
DATE: 03/08/2018 REQUESTING PHYSICIAN: Pedro Pablo Patterson MD REASON FOR CONSULTATION: Sialadenitis. HISTORY: This is a 72-year-old male with a 4-day history of right neck mass which is moderate in size with pain. It was constant. The patient had outpatient antibiotic therapy which did not improve it. The patient was admitted to the hospital yesterday, was placed on IV antibiotic. The mass has gotten smaller and the pain has decreased to mild to moderate at this point. PAST MEDICAL HISTORY: As noted in the chart by me. MEDICATIONS: As noted in the chart by me. PHYSICAL EXAMINATION: HEAD: Atraumatic and normocephalic. FACE: Good facial movements bilaterally. CONSTITUTIONAL: Well fed, well nourished. COMMUNICATION: Communicates well and appropriately. EXTERNAL NOSE AND EARS: No masses, no lesions, no erythema, and no edema. INTERNAL NOSE: Deviated septum. No masses, no lesions, no erythema, and no edema. ORAL CAVITY AND OROPHARYNX: No masses, no lesions, no erythema, and no edema. LIPS AND GUMS: No masses, no lesions, no erythema, and no edema. NECK: There is an old trachea site that has healed. THYROID: No thyromegaly. No goiter. LYMPH NODES: No lymphadenopathy of the neck. LABORATORY DATA: CAT scan was reviewed by me, it revealed sialadenitis, it also revealed some tracheal stenosis at the area of the tracheostomy. The patient does have a small amount of noisy breathing; however, he is not short of breath. The CAT scan does not reveal severe tracheal stenosis. There is some stenosis but is fine at rest. ASSESSMENT: 1. Sialadenitis. 2. 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 RECOMMENDATIONS: Continue IV antibiotics. I may consider giving steroids to make it heal very sooner. Also recommend follow up with the doctor who did the tracheostomy in order to evaluate the tracheal stenosis. Srinivas Avendaño MD MTDNathanael
[2018-03-09] MEDS: Clindamycin 300 MG in Sodium Chloride 0.9% 50 ML IVPB SCH ×2 (05:19→11:47)
[2018-03-09] MEDS: Multiple Vitamins Tab PO SCH (09:19)
--- NOTE | 2018-03-09 12:10 | CP.PCM.PN ---
<Js Lin - Last Filed: 03/09/18 17:59> Subjective - Date & Time of Evaluation Date of Evaluation: 03/09/18 Time of Evaluation: 12:09 - Subjective Subjective: PGY-1 Medicine Progress Note for Dr. Hahn Patient was seen and examined at bedside this AM, resting comfortably and in no acute distress. No acute events reported overnight. Patient is tolerating diet well, no longer complaining of partial obstruction from R sided submandibular swelling. Swelling appears to have decreased; the area of the swelling is outlined. No shortness of breath and speaking in full sentences. No fevers/chill , headaches, dizziness, chest pain, palpitations, abdominal pain, nausea/ vomiting/diarrhea/constipation. Objective - Vital Signs/Intake and Output Vital Signs (last 24 hours): Temp Pulse Resp BP Pulse Ox 98.1 F 62 20 149/79 98 03/09/18 07:00 03/09/18 07:39 03/09/18 07:00 03/09/18 07:00 03/09/18 07:41 Intake and Output: 03/09/18 03/09/18 06:59 18:59 Intake Total 1000 Output Total 500 Balance 500 - Medications Medications: Current Medications Aspirin (Aspirin Chewable) 81 mg PO DAILY [facility] Last Admin: 03/09/18 09:41 Dose: 81 mg Chlordiazepoxide (Librium) 15 mg PO Q6 [facility] Last Admin: 03/09/18 06:19 Dose: Not Given Folic Acid (Folic Acid) 1 mg PO DAILY [facility] Last Admin: 03/09/18 09:19 Dose: 1 mg Gabapentin (Neurontin) 300 mg PO BID [facility] Last Admin: 03/09/18 09:18 Dose: 300 mg Heparin Sodium (Porcine) (Heparin) 5,000 units SC Q12 [facility] Last Admin: 03/09/18 09:41 Dose: Not Given Meropenem 500 mg/ Sodium (Chloride) 100 mls @ 100 mls/hr IVPB Q8H [facility] PRN Reason: Protocol Stop: 03/15/18 12:00 Lactobacillus Acidophilus (Bacid Acidophilus) 1 cap PO BID [facility] Multivitamins (Hexavitamin) 1 tab PO DAILY [facility] Last Admin: 03/09/18 09:19 Dose: 1 tab Phenytoin Sodium (Dilantin) 100 mg PO BID [facility] Last Admin: 03/09/18 09:41 Dose: 100 mg Fluticasone/Salmeterol (Advair Diskus 250/50) 1 puff INH RQ12 [facility] Thiamine HCl (Vitamin B1 Tab) 100 mg PO DAILY [facility] Last Admin: 03/09/18 09:19 Dose: 100 mg - Labs Labs: 03/07/18 15:30 03/07/18 15:30 Assessment and Plan - Assessment and Plan (Free Text) Assessment: 72 M with PMHx of CVA with right sided weakness, HTN, paroxysmal atrial fibrillation, COPD, seizure, history of coma x 4 years (woke up mid 2015, during time of his coma he had tracheostomy) presents to ED with a right side lump in submandibular region. Plan: 1. Inflammation of R submandibular gland--likely 2/2 sialolithiasis, w/o abscess -patient is nontoxic, afebrile -f/u ENT recs (Dr. Avendaño) Imaging: -CT head (03/07): most likely represent a inflammatory/infectious process of the right submandibular gland with surrounding infiltration changes of the subcutaneous tissues and thickening of the platysma and skin surface. No evidence of submandibular gland or submandibular duct stones seen. Medications: -d/c'd rocephin -d/c'd Clindamycin 300 mg q6 -begin meropenem 500 mg q8 -Toradol 30 mg Once -Solumedrol 125 mg IV Once 2. UTI - UA: LE 1+, protein 2+, bacteria--moderate - WBC 10.4 - patient re - UCx (03/09): Klebsiella pneumoniae ESBL (+) Medications: -d/c'd rocephin -d/c'd clindamycin -begin meropenem 500 mg q8 3. Hx of Alcohol use - telemetry monitoring Medications -Folic acid 1 mg PO daily -Thiamine 100 mg PO daily -Multivitamin 1 tab PO daily -Librium 15 mg PO q6, hold if lethargic--pt refusing librium (03/08) 4. Low MCV - F/u Iron levels--pt refusing blood work (03/08) 5) Hx of HTN - currently on no medication - will monitor, add therapy as necessary 6. Hx Paroxymal Afib - continue home medication: -Aspirin 81mg daily 7. Hx of COPD - continue home medications: -Advair Diskus 250/50 1 puff Q12 - Mometasone 220 puff QPM 8. Hx of Seizure - continue home medication: -Phenytoin 100 mg BID - Gabapentin 300 mg BID 9. Prophylaxis, Diet, Disposition - DVT: heparin 5000 units SC Q12; SCDs - heart healthy diet - contact precautions Case discussed with Dr. Selma Lin DO PGY1 <Jam Hahn H - Last Filed: 03/09/18 18:51> Objective - Vital Signs/Intake and Output Vital Signs (last 24 hours): Temp Pulse Resp BP Pulse Ox 98 F 62 20 159/90 H 100 03/09/18 16:16 03/09/18 16:16 03/09/18 16:16 03/09/18 16:16 03/09/18 16:41 Intake and Output: 03/09/18 03/09/18 06:59 18:59 Intake Total 1000 Output Total 500 Balance 500 - Medications Medications: Current Medications Aspirin (Aspirin Chewable) 81 mg PO DAILY [facility] Last Admin: 03/09/18 09:41 Dose: 81 mg Chlordiazepoxide (Librium) 15 mg PO Q6 [facility] Last Admin: 03/09/18 12:13 Dose: Not Given Folic Acid (Folic Acid) 1 mg PO DAILY [facility] Last Admin: 03/09/18 09:19 Dose: 1 mg Gabapentin (Neurontin) 300 mg PO BID [facility] Last Admin: 03/09/18 09:18 Dose: 300 mg Heparin Sodium (Porcine) (Heparin) 5,000 units SC Q12 [facility] Last Admin: 03/09/18 09:41 Dose: Not Given Meropenem 500 mg/ Sodium (Chloride) 100 mls @ 100 mls/hr IVPB Q8H [facility] PRN Reason: Protocol Stop: 03/15/18 12:00 Last Admin: 03/09/18 12:55 Dose: 100 mls/hr Lactobacillus Acidophilus (Bacid Acidophilus) 1 cap PO BID [facility] Multivitamins (Hexavitamin) 1 tab PO DAILY [facility] Last Admin: 03/09/18 09:19 Dose: 1 tab Phenytoin Sodium (Dilantin) 100 mg PO BID [facility] Last Admin: 03/09/18 09:41 Dose: 100 mg Fluticasone/Salmeterol (Advair Diskus 250/50) 1 puff INH RQ12 [facility] Thiamine HCl (Vitamin B1 Tab) 100 mg PO DAILY [facility] Last Admin: 03/09/18 09:19 Dose: 100 mg - Labs Labs: 03/07/18 15:30 03/07/18 15:30 Attending/Attestation - Attestation I have personally seen and examined this patient.: Yes I have fully participated in the care of the patient.: Yes I have reviewed all pertinent clinical information, including history, physical exam and plan: Yes Notes (Text): 03/09/18 18:49 Medical attending: Patient was seen and examined by me. Agree with the above note by the resident The patient did not have any acute events overnight - he was mostly upset with the food quality this morning. The right side area was much decreased in size. It was only minimally tender on exam and also the patient denied difficulty eating/swallowing We were just about to discharge the patient with oral abx today however about an hour after we saw him the urine culture returned and was + for ESBL Klebseilla in the urine. We started on IV primaxin for the time being. The bacteria is extremely resistance to many things and had > 100K CFUs Jam Hahn
[2018-03-09] MEDS: Meropenem 500 MG in Sodium Chloride 0.9% 100 ML IVPB SCH ×2 (12:55→19:00)
[2018-03-09] MEDS: Lactobacillus Acidophilus 500 MU Cap PO SCH (18:57)
[2018-03-10] MEDS: Meropenem 500 MG in Sodium Chloride 0.9% 100 ML IVPB SCH (04:00)
--- NOTE | 2018-03-10 07:46 | CP.PCM.PN ---
<Js Lin - Last Filed: 03/10/18 15:09> Subjective - Date & Time of Evaluation Date of Evaluation: 03/10/18 Time of Evaluation: 07:46 - Subjective Subjective: PGY-1 Medicine Progress Note for Dr. Anderson Patient seen and examined at bedside this AM. No acute events reported overnight. R submandibular gland swelling is decreased and pt no longer complains of dysphagia or sob. Pt continues to refuse daily blood draws and has not had lab values reported since 03/07. The importance of monitoring lab values, particularly with a multi-drug resistant urinary tract infection, was discussed with the patient at length. He denies any urinary symptoms. No fevers/chills, headaches, dizziness, chest pain, palpitations, abdominal pain, nausea/vomiting/ diarrhea/constipation, dysuria, or changes in stool Objective - Vital Signs/Intake and Output Vital Signs (last 24 hours): Temp Pulse Resp BP Pulse Ox 97.8 F 64 20 164/91 H 95 03/10/18 00:00 03/10/18 00:00 03/10/18 00:00 03/10/18 00:00 03/10/18 00:00 Intake and Output: 03/10/18 03/10/18 06:59 18:59 Output Total 1050 Balance -1050 - Medications Medications: Current Medications Aspirin (Aspirin Chewable) 81 mg PO DAILY [facility] Last Admin: 03/09/18 09:41 Dose: 81 mg Chlordiazepoxide (Librium) 15 mg PO Q6 [facility] Last Admin: 03/10/18 06:22 Dose: Not Given Folic Acid (Folic Acid) 1 mg PO DAILY [facility] Last Admin: 03/09/18 09:19 Dose: 1 mg Gabapentin (Neurontin) 300 mg PO BID [facility] Last Admin: 03/09/18 18:57 Dose: 300 mg Heparin Sodium (Porcine) (Heparin) 5,000 units SC Q12 [facility] Last Admin: 03/09/18 22:14 Dose: Not Given Meropenem 500 mg/ Sodium (Chloride) 100 mls @ 100 mls/hr IVPB Q8H [facility] PRN Reason: Protocol Stop: 03/15/18 12:00 Last Admin: 03/10/18 04:00 Dose: 100 mls/hr Lactobacillus Acidophilus (Bacid Acidophilus) 1 cap PO BID [facility] Last Admin: 03/09/18 18:57 Dose: Not Given Multivitamins (Hexavitamin) 1 tab PO DAILY [facility] Last Admin: 03/09/18 09:19 Dose: 1 tab Phenytoin Sodium (Dilantin) 100 mg PO BID [facility] Last Admin: 03/09/18 18:57 Dose: 100 mg Fluticasone/Salmeterol (Advair Diskus 250/50) 1 puff INH RQ12 [facility] Thiamine HCl (Vitamin B1 Tab) 100 mg PO DAILY [facility] Last Admin: 03/09/18 09:19 Dose: 100 mg - Labs Labs: 03/07/18 15:30 03/07/18 15:30 - Constitutional Appears: Non-toxic, No Acute Distress - Head Exam Head Exam: ATRAUMATIC, NORMAL INSPECTION, NORMOCEPHALIC - Eye Exam Eye Exam: EOMI, Normal appearance Pupil Exam: NORMAL ACCOMODATION - ENT Exam ENT Exam: Mucous Membranes Moist, Normal Exam - Neck Exam Neck Exam: Normal Inspection - Respiratory Exam Respiratory Exam: Clear to Ausculation Bilateral, NORMAL BREATHING PATTERN. absent: Rales, Rhonchi, Wheezes - Cardiovascular Exam Cardiovascular Exam: REGULAR RHYTHM, +S1, +S2 - GI/Abdominal Exam GI & Abdominal Exam: Soft, Normal Bowel Sounds. absent: Distended, Firm, Guarding, Tenderness, Rebound - Extremities Exam Extremities Exam: Normal Inspection. absent: Pedal Edema, Tenderness - Back Exam Back Exam: NORMAL INSPECTION. absent: CVA tenderness (L), CVA tenderness (R) - Neurological Exam Neurological Exam: Alert, Awake, CN II-XII Intact, Oriented x3 - Skin Skin Exam: Dry, Intact, Normal Color, Warm Assessment and Plan - Assessment and Plan (Free Text) Assessment: 72 M with PMHx of CVA with right sided weakness, HTN, paroxysmal atrial fibrillation, COPD, seizure, history of coma x 4 years (woke up mid 2016, during time of his coma he had tracheostomy) presents to ED with a right side lump in submandibular region. Plan: Inflammation of R submandibular gland--likely 2/2 sialolithiasis, w/o abscess -patient is nontoxic, afebrile -delineated swelling has decreased -f/u ENT recs (Dr. Avendaño) Imaging: -CT head (03/07): most likely represent a inflammatory/infectious process of the right submandibular gland with surrounding infiltration changes of the subcutaneous tissues and thickening of the platysma and skin surface. No evidence of submandibular gland or submandibular duct stones seen. Medications: -Solumedrol 125 mg IV Once UTI - UA: LE 1+, protein 2+, bacteria--moderate - WBC 10.4 (03/07)--pt continues to refuse blood work - UCx (03/09): Klebsiella pneumoniae ESBL (+), >100K CFUs - ID recs (Dr. Ashotn) appreciated --meropenem adjusted: Merrem IV 1 gm Premix 50 mls @ 100cc/hr Hx of Alcohol use - telemetry monitoring Medications -Folic acid 1 mg PO daily -Thiamine 100 mg PO daily -Multivitamin 1 tab PO daily -Librium 15 mg PO q6, hold if lethargic--pt refusing librium (03/08) Low MCV - F/u Iron levels--pt refusing blood work (03/08) Hx of HTN - currently on no medication - will monitor, add therapy as necessary Hx Paroxymal Afib - continue home medication: -Aspirin 81mg daily Hx of COPD - continue home medications: -Advair Diskus 250/50 1 puff Q12 - Mometasone 220 puff QPM Hx of Seizure - continue home medication: -Phenytoin 100 mg BID -Gabapentin 300 mg BID Prophylaxis, Diet, Disposition - DVT: heparin 5000 units SC Q12; SCDs - heart healthy diet - contact precautions Case discussed with Dr. Selma Lin DO, PGY1 <Kendy Anderson - Last Filed: 03/10/18 17:35> Objective - Vital Signs/Intake and Output Vital Signs (last 24 hours): Temp Pulse Resp BP Pulse Ox 97.4 F L 64 20 159/83 H 100 03/10/18 16:02 03/10/18 16:02 03/10/18 16:02 03/10/18 16:02 03/10/18 16:02 Intake and Output: 03/10/18 03/10/18 06:59 18:59 Output Total 1050 Balance -1050 - Medications Medications: Current Medications Aspirin (Aspirin Chewable) 81 mg PO DAILY [facility] Last Admin: 03/10/18 10:12 Dose: 81 mg Chlordiazepoxide (Librium) 15 mg PO Q6 [facility] Last Admin: 03/10/18 12:26 Dose: Not Given Folic Acid (Folic Acid) 1 mg PO DAILY [facility] Last Admin: 03/10/18 10:12 Dose: 1 mg Gabapentin (Neurontin) 300 mg PO BID [facility] Last Admin: 03/10/18 10:13 Dose: 300 mg Heparin Sodium (Porcine) (Heparin) 5,000 units SC Q12 [facility] Last Admin: 03/10/18 10:13 Dose: Not Given Meropenem (Merrem Iv 1 Gm Premix) 50 mls @ 100 mls/hr IVPB Q8H [facility] PRN Reason: Protocol Last Admin: 03/10/18 15:13 Dose: 100 mls/hr Lactobacillus Acidophilus (Bacid Acidophilus) 1 cap PO BID [facility] Last Admin: 03/10/18 10:13 Dose: 1 cap Multivitamins (Hexavitamin) 1 tab PO DAILY [facility] Last Admin: 03/10/18 10:13 Dose: 1 tab Phenytoin Sodium (Dilantin) 100 mg PO BID [facility] Last Admin: 03/10/18 10:13 Dose: 100 mg Fluticasone/Salmeterol (Advair Diskus 250/50) 1 puff INH RQ12 [facility] Thiamine HCl (Vitamin B1 Tab) 100 mg PO DAILY [facility] Last Admin: 03/10/18 10:12 Dose: 100 mg - Labs Labs: 03/07/18 15:30 03/07/18 15:30 Attending/Attestation - Attestation I have personally seen and examined this patient.: Yes I have fully participated in the care of the patient.: Yes I have reviewed all pertinent clinical information, including history, physical exam and plan: Yes Notes (Text): This a patient with extensive past medicatl problem with history of coma and long hospitalization few years ago has UTI with multi drug resistant Klebsiella UTI Has history of BPH,Elevated PSA ? and recent cystoscopy by Dr [place]. No fever,no leukocytosis ,no history of DM Patient wants to go home. Discussed about his drug resistant UIT and need for IV antibiotics. We will get US abdomen.refuses labs. Dr Ashton's ID consult appreciated. we will continue Meropenem
[2018-03-10] MEDS: Multiple Vitamins Tab PO SCH (10:13)
[2018-03-10] MEDS: Lactobacillus Acidophilus 500 MU Cap PO SCH ×2 (10:13→18:16)
--- NOTE | 2018-03-10 12:55 | CP.PCM.CON ---
History of Present Illness - History of Present Illness History of Present Illness: iv rx adjusted consult to follow 72 M w/ PMHx of CVA with right sided weakness, HTN, paroxysmal atrial fibrillation, COPD, seizure, history of coma x 4 years (woke up mid 2015, during time of his coma he had tracheostomy) presents to ED with a right side lump in submandibular region. Patient states it appeared suddenly 3 days prior and was worse 1 day prior. Patient states it is tender on palpation and it is painful when eating. Patient states he was on antibiotics 1 weeks prior for a UTI that was treated by his urologist. Patient states he does have decreased breathing secondary to inflammation of his left nare that is currently being managed by his ENT outpatient. Patient denies chest pain, abdominal pain, constipation, trouble with urination. PMD: Dr. 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, smokes about 1 pack/day, drinks about 375ml of keeley/day Review of Systems - Review of Systems All systems: reviewed and no additional remarkable complaints except - Constitutional Constitutional: absent: As Per HPI, Anorexia, Chills, Daytime Sleepiness, Excessive Sweating, Fatigue, Fever, Frequent Falls, Headache, Increased Appetite , Lethargy, Malaise, Night Sweats, Snoring, Sleep Apnea, Weight Gain, Weight Loss, Weakness, Other - EENT Eyes: absent: As Per HPI, Blind Spots, Blurred Vision, Change in Vision, Decreased Night Vision, Diplopia, Discharge, Dry Eye, Exophthalmos, Floaters, Irritation, Itchy Eyes, Loss of Peripheral Vision, Pain, Photophobia, Requires Corrective Lenses, Sees Flashes, Spots in Vision, Tunnel Vision, Other Visual Disturbances, Loss of Vision, Other Ears: absent: As Per HPI, Decreased Hearing, Ear Discharge, Ear Pain, Tinnitus, Abnormal Hearing, Disequilibrium, Dizziness, Other Nose/Mouth/Throat: absent: As Per HPI, Epistaxis, Nasal Congestion, Nasal Discharge, Nasal Obstruction, Nasal Trauma, Nose Pain, Post Nasal Drip, Sinus Pain, Sinus Pressure, Bleeding Gums, Change in Voice, Dental Pain, Dry Mouth, Dysphagia, Halitosis, Hoarsness, Lip Swelling, Mouth Lesions, Mouth Pain, Odynophagia, Sore Throat, Throat Swelling, Tongue Swelling, Facial Pain, Neck Pain, Neck Mass, Other - Cardiovascular Cardiovascular: absent: As Per HPI, Acrocyanosis, Chest Pain, Chest Pain at Rest , Chest Pain with Activity, Claudication, Diaphoresis, Dyspnea, Dyspnea on Exertion, Edema, Irregular Heart Rhythm, Pain Radiating to Arm/Neck/Jaw, Leg Edema, Leg Ulcers, Lightheadedness, Orthopnea, Palpitations, Paroxysmal Nocturnal Dyspnea, Pedal Edema, Radiating Pain, Rapid Heart Rate, Slow Heart Rate, Syncope, Other - Respiratory Respiratory: absent: As Per HPI, Cough, Dyspnea, Hemoptysis, Dyspnea on Exertion , Wheezing, Snoring, Stridor, Pain on Inspiration, Chest Congestion, Excessive Mucous Production, Change in Mucous Color, Pain with Coughing, Other - Gastrointestinal Gastrointestinal: absent: As Per HPI, Abdominal Pain, Belching, Bloating, Change in Bowel Habits, Change in Stool Character, Coffee Ground Emesis, Constipation, Cramping, Diarrhea, Dyspepsia, Dysphagia, Early Satiety, Excessive Flatus, Fecal Incontinence, Heartburn, Hematemesis, Hematochezia, Loose Stools, Melena, Nausea, Odynophagia, Temesmus, Vomiting, Other - Genitourinary Genitourinary: As Per HPI - Musculoskeletal Musculoskeletal: absent: As Per HPI, Abnormal Gait, Arthralgias, Atrophy, Back Pain, Deformity, Joint Swelling, Limited Range of Motion, Loss of Height, Muscle Cramps, Muscle Weakness, Myalgias, Neck Pain, Numbness, Radiating Pain into Limb, Stiffness, Tingling, Other - Integumentary Integumentary: absent: As Per HPI, Acne, Alopecia, Bleeding Lesions, Change in Hair, Change in Nails, Change in Pigmentation, Changing Lesions, Dry Skin, Erythema, Furuncle, Hirsutism, Lesions, New Lesions, Non-Healing Lesions, Photosensitivity, Pruritus, Rash, Skin Pain, Skin Ulcer, Sores, Striae, Swelling , Unusual Bruising, Wounds, Jaundice, Other - Neurological Neurological: As Per HPI - Psychiatric Psychiatric: absent: As Per HPI, Abnormal Sleep Pattern, Anhedonia, Anxiety, Auditory Hallucinations, Behavioral Changes, Change in Appetite, Change in Libido, Confusion, Depression, Difficulty Concentrating, Hallucinations, Homicidal Ideation, Hopelessness, Irritability, Memory Loss, Mood Swings, Panic Attacks, Paranoia, Suicidal Ideation, Visual Hallucinations, Tactile Hallucinations, Other - Endocrine Endocrine: absent: As Per HPI, Change in Body Appearance, Change in Libido, Cold Intolorance, Deepening of Voice, Excessive Sweating, Fatigue, Flushing, Heat Intolorance, Increase in Ring/Shoe/Hat Size, Palpitations, Polydipsia, Polyphagia, Polyuria, Other - Hematologic/Lymphatic Hematologic: absent: As Per HPI, Easy Bleeding, Easy Bruising, Lymphadenopathy, Other Past Patient History - Infectious Disease Hx of Infectious Diseases: None - Past Medical History & Family History Past Medical History?: Yes - Past Social History Smoking Status: Heavy Smoker > 10 Cigarettes Daily - CARDIAC Hx Atrial Fibrillation: Yes Hx Cardia Arrhythmia: (SVT DURING COLONOSCOPY) Hx Hypertension: Yes - PULMONARY Hx Chronic Obstructive Pulmonary Disease (COPD): Yes Hx Pneumonia: Yes - NEUROLOGICAL Hx Seizures: Yes - HEENT Hx HEENT Problems: No - RENAL Hx Chronic Kidney Disease: No - ENDOCRINE/METABOLIC Hx Endocrine Disorders: No - HEMATOLOGICAL/ONCOLOGICAL Hx Blood Disorders: No - INTEGUMENTARY Hx Dermatological Problems: Yes Other/Comment: DISCOLORIZATION BOTH FEET - MUSCULOSKELETAL/RHEUMATOLOGICAL Other/Comment: Uses wheelchair - GASTROINTESTINAL Hx Gastrointestinal Disorders: No - GENITOURINARY/GYNECOLOGICAL Hx Genitourinary Disorders: Yes Hx Prostate Problems: Yes Hx Urinary Tract Infection: Yes - PSYCHIATRIC Hx Depression: Yes Hx Substance Use: No - SURGICAL HISTORY Hx Surgeries: Yes Other/Comment: CRANIOTOMY s/p RUPTURED ANEURYSM, S/P TRACHEOSTOMY, S/P PEG - ANESTHESIA Hx Anesthesia: Yes Meds Allergies/Adverse Reactions: Allergies Allergy/AdvReac Type Severity Reaction Status Date / Time No Known Allergies Allergy Verified 03/07/18 14:18 - Medications Medications: Current Medications Aspirin (Aspirin Chewable) 81 mg PO DAILY [facility] Last Admin: 03/10/18 10:12 Dose: 81 mg Chlordiazepoxide (Librium) 15 mg PO Q6 [facility] Last Admin: 03/10/18 06:22 Dose: Not Given Folic Acid (Folic Acid) 1 mg PO DAILY [facility] Last Admin: 03/10/18 10:12 Dose: 1 mg Gabapentin (Neurontin) 300 mg PO BID [facility] Last Admin: 03/10/18 10:13 Dose: 300 mg Heparin Sodium (Porcine) (Heparin) 5,000 units SC Q12 [facility] Last Admin: 03/10/18 10:13 Dose: Not Given Meropenem 1 gm/ Sodium (Chloride) 100 mls @ 100 mls/hr IVPB Q8H [facility] PRN Reason: Protocol Lactobacillus Acidophilus (Bacid Acidophilus) 1 cap PO BID [facility] Last Admin: 03/10/18 10:13 Dose: 1 cap Multivitamins (Hexavitamin) 1 tab PO DAILY [facility] Last Admin: 03/10/18 10:13 Dose: 1 tab Phenytoin Sodium (Dilantin) 100 mg PO BID [facility] Last Admin: 03/10/18 10:13 Dose: 100 mg Fluticasone/Salmeterol (Advair Diskus 250/50) 1 puff INH RQ12 [facility] Thiamine HCl (Vitamin B1 Tab) 100 mg PO DAILY [facility] Last Admin: 03/10/18 10:12 Dose: 100 mg Physical Exam - Constitutional Appears: Non-toxic, Chronically Ill - Head Exam Head Exam: NORMOCEPHALIC - Eye Exam Eye Exam: PERRL Pupil Exam: NORMAL ACCOMODATION - ENT Exam ENT Exam: Mucous Membranes Dry Additional comments: + right submandibular node - Neck Exam Neck exam: Positive for: Lymphadenopathy - Respiratory Exam Respiratory Exam: Decreased Breath Sounds - Cardiovascular Exam Cardiovascular Exam: REGULAR RHYTHM, +S1, +S2 - GI/Abdominal Exam GI & Abdominal Exam: Diminished Bowel Sounds, Soft. absent: Tenderness - Rectal Exam Rectal Exam: Deferred - Exam Exam: NORMAL INSPECTION - Extremities Exam Extremities exam: Negative for: pedal edema - Back Exam Back exam: absent: CVA tenderness (L), CVA tenderness (R) - Neurological Exam Neurological exam: Alert, CN II-XII Intact, Motor Sensory Deficit, Oriented x3 - Psychiatric Exam Psychiatric exam: Depressed - Skin Skin Exam: Dry Results - Vital Signs Recent Vital Signs: Last Vital Signs Temp 98.0 F 03/10/18 07:05 Pulse 64 03/10/18 07:23 Resp 20 03/10/18 07:05 BP 148/84 03/10/18 07:05 Pulse Ox 96 03/10/18 07:23 - Labs Result Diagrams: 03/07/18 15:30 03/07/18 15:30 Assessment & Plan (1) ESBL (extended spectrum beta-lactamase) producing bacteria infection Status: Acute (2) Submandibular gland infection Status: Acute (3) Urinary tract infection Status: Acute - Assessment and Plan (Free Text) Assessment: cont iv rx ent eval for LN Bx dental follow up eval 14 days IV Merrem
[2018-03-10] MEDS ORDERED: Meropenem 1 GM in Sodium Chloride 0.9% 100 ML IVPB SCH ×2 (14:00→15:00)
[2018-03-10] MEDS: Meropenem IV 1 gm in NS 50 ML IVPB SCH ×2 (15:13→22:00)
[2018-03-11] MEDS: Meropenem IV 1 gm in NS 50 ML IVPB SCH ×3 (06:02→22:43)
[2018-03-11] MEDS: Lactobacillus Acidophilus 500 MU Cap PO SCH ×2 (10:24→18:59)
[2018-03-11] MEDS: Multiple Vitamins Tab PO SCH (10:24)
--- NOTE | 2018-03-11 12:10 | CP.PCM.PN ---
Subjective - Date & Time of Evaluation Date of Evaluation: 03/11/18 Time of Evaluation: 09:00 - Subjective Subjective: less swelling seen by ENT IV rx in progress for ESBL UTI follow up by Objective - Vital Signs/Intake and Output Vital Signs (last 24 hours): Temp Pulse Resp BP Pulse Ox 98.2 F 78 18 177/73 H 100 03/11/18 07:50 03/11/18 11:01 03/11/18 07:50 03/11/18 07:50 03/11/18 07:50 Intake and Output: 03/11/18 03/11/18 06:59 18:59 Output Total 400 Balance -400 - Medications Medications: Current Medications Aspirin (Aspirin Chewable) 81 mg PO DAILY [facility] Last Admin: 03/11/18 10:24 Dose: Not Given Chlordiazepoxide (Librium) 15 mg PO Q6 [facility] Last Admin: 03/11/18 11:26 Dose: Not Given Folic Acid (Folic Acid) 1 mg PO DAILY [facility] Last Admin: 03/11/18 10:24 Dose: Not Given Gabapentin (Neurontin) 300 mg PO BID [facility] Last Admin: 03/11/18 10:24 Dose: Not Given Heparin Sodium (Porcine) (Heparin) 5,000 units SC Q12 [facility] Last Admin: 03/11/18 10:35 Dose: Not Given Meropenem (Merrem Iv 1 Gm Premix) 50 mls @ 100 mls/hr IVPB Q8H [facility] PRN Reason: Protocol Last Admin: 03/11/18 06:02 Dose: 100 mls/hr Lactobacillus Acidophilus (Bacid Acidophilus) 1 cap PO BID [facility] Last Admin: 03/11/18 10:24 Dose: Not Given Multivitamins (Hexavitamin) 1 tab PO DAILY [facility] Last Admin: 03/11/18 10:24 Dose: Not Given Phenytoin Sodium (Dilantin) 100 mg PO BID [facility] Last Admin: 03/11/18 10:24 Dose: Not Given Fluticasone/Salmeterol (Advair Diskus 250/50) 1 puff INH RQ12 [facility] Thiamine HCl (Vitamin B1 Tab) 100 mg PO DAILY [facility] Last Admin: 03/11/18 10:25 Dose: Not Given - Labs Labs: 03/07/18 15:30 03/07/18 15:30 - Constitutional Appears: Non-toxic, Chronically Ill - Head Exam Head Exam: NORMOCEPHALIC - Eye Exam Eye Exam: PERRL - ENT Exam ENT Exam: Mucous Membranes Dry - Neck Exam Neck Exam: absent: Lymphadenopathy - Respiratory Exam Respiratory Exam: Decreased Breath Sounds - Cardiovascular Exam Cardiovascular Exam: REGULAR RHYTHM - GI/Abdominal Exam GI & Abdominal Exam: Distended - Rectal Exam Rectal Exam: Deferred - Exam Exam: NORMAL INSPECTION - Extremities Exam Extremities Exam: absent: Pedal Edema - Back Exam Back Exam: absent: CVA tenderness (L), CVA tenderness (R) - Neurological Exam Neurological Exam: Alert, Awake, CN II-XII Intact, Motor Sensory Deficit, Oriented x3 Assessment and Plan - Assessment and Plan (Free Text) Assessment: cont iv antibiotic x 14 days
--- NOTE | 2018-03-11 15:27 | RAD ---
Date of service: 03/11/2018 HISTORY: PICC placement COMPARISON: No prior. FINDINGS: LUNGS: No consolidation PLEURA: No significant pleural effusion identified, no pneumothorax apparent. CARDIOVASCULAR: Mild cardiomegaly. Tortuous thoracic aorta. Right subclavian PICC line tip superior vena cava. OSSEOUS STRUCTURES: No significant abnormalities. VISUALIZED UPPER ABDOMEN: The appearance of the left hemidiaphragm probably relates to summation of hepatic flexure gas rather than subdiaphragmatic air. OTHER FINDINGS: None. IMPRESSION: No acute cardiopulmonary pathology. Right PICC line tip in superior vena cava no pneumothorax. Other findings as above.
--- NOTE | 2018-03-11 15:55 | CP.PCM.PN ---
<Js Lin - Last Filed: 03/11/18 15:47> Subjective - Date & Time of Evaluation Date of Evaluation: 03/11/18 Time of Evaluation: 08:00 - Subjective Subjective: PGY-1 Medicine Progress Note for Dr. Anderson Patient seen and examined at bedside this AM, resting comfortably and in no acute distress. No acute events reported overnight. Pt continues to refuse blood draws for lab. PICC line was discussed with patient for continued IV abx outside hospital. Pt amenable to procedure. No fevers/chills, nausea/vomiting/ diarrhea/constipation, chest pain, palpitations, sob, cough, or abdominal pain. Objective - Vital Signs/Intake and Output Vital Signs (last 24 hours): Temp Pulse Resp BP Pulse Ox 98.2 F 78 18 177/73 H 100 03/11/18 07:50 03/11/18 11:01 03/11/18 07:50 03/11/18 07:50 03/11/18 07:50 Intake and Output: 03/11/18 03/11/18 06:59 18:59 Intake Total 150 Output Total 400 Balance -400 150 - Medications Medications: Current Medications Aspirin (Aspirin Chewable) 81 mg PO DAILY [facility] Last Admin: 03/11/18 10:24 Dose: Not Given Chlordiazepoxide (Librium) 15 mg PO Q6 [facility] Last Admin: 03/11/18 11:26 Dose: Not Given Folic Acid (Folic Acid) 1 mg PO DAILY [facility] Last Admin: 03/11/18 10:24 Dose: Not Given Gabapentin (Neurontin) 300 mg PO BID [facility] Last Admin: 03/11/18 10:24 Dose: Not Given Heparin Sodium (Porcine) (Heparin) 5,000 units SC Q12 [facility] Last Admin: 03/11/18 10:35 Dose: Not Given Meropenem (Merrem Iv 1 Gm Premix) 50 mls @ 100 mls/hr IVPB Q8H [facility] PRN Reason: Protocol Last Admin: 03/11/18 13:50 Dose: Not Given Lactobacillus Acidophilus (Bacid Acidophilus) 1 cap PO BID [facility] Last Admin: 03/11/18 10:24 Dose: Not Given Multivitamins (Hexavitamin) 1 tab PO DAILY [facility] Last Admin: 03/11/18 10:24 Dose: Not Given Phenytoin Sodium (Dilantin) 100 mg PO BID [facility] Last Admin: 03/11/18 10:24 Dose: Not Given Fluticasone/Salmeterol (Advair Diskus 250/50) 1 puff INH RQ12 [facility] Thiamine HCl (Vitamin B1 Tab) 100 mg PO DAILY [facility] Last Admin: 03/11/18 10:25 Dose: Not Given - Labs Labs: 03/07/18 15:30 03/07/18 15:30 - Constitutional Appears: Non-toxic, No Acute Distress - Head Exam Head Exam: ATRAUMATIC, NORMAL INSPECTION, NORMOCEPHALIC - Eye Exam Eye Exam: EOMI, Normal appearance Pupil Exam: NORMAL ACCOMODATION - ENT Exam ENT Exam: Mucous Membranes Moist, Normal Exam - Neck Exam Neck Exam: Full ROM, Normal Inspection. absent: Tenderness - Respiratory Exam Respiratory Exam: Clear to Ausculation Bilateral, NORMAL BREATHING PATTERN. absent: Rales, Rhonchi, Wheezes, Respiratory Distress - Cardiovascular Exam Cardiovascular Exam: +S1, +S2 - GI/Abdominal Exam GI & Abdominal Exam: Soft, Normal Bowel Sounds. absent: Distended, Firm, Guarding, Rigid, Tenderness - Extremities Exam Extremities Exam: Normal Capillary Refill, Normal Inspection. absent: Joint Swelling, Pedal Edema, Tenderness - Back Exam Back Exam: NORMAL INSPECTION - Neurological Exam Neurological Exam: Alert, Awake, Oriented x3 - Psychiatric Exam Psychiatric exam: Normal Affect, Normal Mood - Skin Skin Exam: Dry, Intact, Normal Color, Warm Assessment and Plan - Assessment and Plan (Free Text) Assessment: 72 M with PMHx of CVA with right sided weakness, HTN, paroxysmal atrial fibrillation, COPD, seizure, history of coma x 4 years (woke up mid 2015, during time of his coma he had tracheostomy) presents to ED with a right side lump in submandibular region. Plan: Inflammation of R submandibular gland 2/2 sialolithiasis, w/o abscess--resolved -patient is nontoxic, afebrile -delineated swelling has decreased -f/u ENT recs (Dr. Avendaño) Imaging: -CT head (03/07): most likely represent a inflammatory/infectious process of the right submandibular gland with surrounding infiltration changes of the subcutaneous tissues and thickening of the platysma and skin surface. No evidence of submandibular gland or submandibular duct stones seen. Medications: -Solumedrol 125 mg IV Once UTI - UA: LE 1+, protein 2+, bacteria--moderate - WBC 10.4 (03/07)--pt continues to refuse blood work - UCx (03/09): Klebsiella pneumoniae ESBL (+), >100K CFUs - ID recs (Dr. Ashton) appreciated --meropenem adjusted: Merrem IV 1 gm Premix 50 mls @ 100cc/hr --Pt agrees to PICC line placement for IV abx, 14 days total Hx of Alcohol use - telemetry monitoring Medications -Folic acid 1 mg PO daily -Thiamine 100 mg PO daily -Multivitamin 1 tab PO daily -Librium 15 mg PO q6, hold if lethargic--pt refusing librium (03/08) Low MCV - F/u Iron levels--pt refusing blood work (03/08) Hx of HTN - currently on no medication - will monitor, add therapy as necessary Hx Paroxymal Afib - continue home medication: -Aspirin 81mg daily Hx of COPD - continue home medications: -Advair Diskus 250/50 1 puff Q12 - Mometasone 220 puff QPM Hx of Seizure - continue home medication: -Phenytoin 100 mg BID -Gabapentin 300 mg BID Prophylaxis, Diet, Disposition - DVT: heparin 5000 units SC Q12; SCDs - heart healthy diet - contact precautions -Dispo: Pt to be d/c'd to [facility] with picc line in place for 14 days of meropenem. Awaiting social placement. Case discussed with Dr. Justin Lin DO, PGY1 <Kendy Anderson - Last Filed: 03/11/18 18:58> Objective - Vital Signs/Intake and Output Vital Signs (last 24 hours): Temp Pulse Resp BP Pulse Ox 97.7 F 61 20 175/86 H 100 03/11/18 15:00 03/11/18 15:00 03/11/18 15:00 03/11/18 15:00 03/11/18 15:00 Intake and Output: 03/11/18 03/11/18 06:59 18:59 Intake Total 150 Output Total 400 Balance -400 150 - Medications Medications: Current Medications Aspirin (Aspirin Chewable) 81 mg PO DAILY [facility] Last Admin: 03/11/18 10:24 Dose: Not Given Chlordiazepoxide (Librium) 15 mg PO Q6 [facility] Last Admin: 03/11/18 11:26 Dose: Not Given Folic Acid (Folic Acid) 1 mg PO DAILY [facility] Last Admin: 03/11/18 10:24 Dose: Not Given Gabapentin (Neurontin) 300 mg PO BID [facility] Last Admin: 03/11/18 10:24 Dose: Not Given Heparin Sodium (Porcine) (Heparin) 5,000 units SC Q12 [facility] Last Admin: 03/11/18 10:35 Dose: Not Given Meropenem (Merrem Iv 1 Gm Premix) 50 mls @ 100 mls/hr IVPB Q8H [facility] PRN Reason: Protocol Last Admin: 03/11/18 13:50 Dose: Not Given Lactobacillus Acidophilus (Bacid Acidophilus) 1 cap PO BID [facility] Last Admin: 03/11/18 10:24 Dose: Not Given Multivitamins (Hexavitamin) 1 tab PO DAILY [facility] Last Admin: 03/11/18 10:24 Dose: Not Given Phenytoin Sodium (Dilantin) 100 mg PO BID [facility] Last Admin: 03/11/18 10:24 Dose: Not Given Fluticasone/Salmeterol (Advair Diskus 250/50) 1 puff INH RQ12 [facility] Thiamine HCl (Vitamin B1 Tab) 100 mg PO DAILY [facility] Last Admin: 03/11/18 10:25 Dose: Not Given - Labs Labs: 03/07/18 15:30 03/07/18 15:30 Attending/Attestation - Attestation I have personally seen and examined this patient.: Yes I have fully participated in the care of the patient.: Yes I have reviewed all pertinent clinical information, including history, physical exam and plan: Yes Notes (Text): Patient is changed to inpatient. Discussed with Dr Ashton. Recommending 14days of antibiotics for ESBL UTI We will get a picc line Discussed about discharge plan and IV antibiotics at rehab. patient agrees with our plan. His parotid gland is resolving Discussed with the resident and I agree with the documentation
[2018-03-11 16:14] VITALS: RESP 20
--- NOTE | 2018-03-11 16:37 | US ---
Date of service: 03/11/2018 HISTORY: r/o stones, obstruction COMPARISON: None. TECHNIQUE: Sonographic evaluation of the abdomen. FINDINGS: LIVER: Measures 15.0 cm. Normal echogenicity of the liver parenchyma. No mass. No intrahepatic bile duct dilatation. GALLBLADDER: Unremarkable. No gallstones. COMMON BILE DUCT: Measures 5.6 mm. No stones. No dilatation. PANCREAS: Unremarkable as visualized. No mass. No ductal dilatation. RIGHT KIDNEY: Measures 9.1 x 4.3 x 4.7cm. Normal echogenicity. No calculus, mass, or hydronephrosis. LEFT KIDNEY: Measures 9.6 x 5.4 x 5.0cm. Normal echogenicity. No calculus, solid-appearing mass, or hydronephrosis. Multiple left renal cysts are suggested the largest is at the upper pole measuring 2.5 x 2.4 x 2.8 cm. Smaller 1 seen inferior to this probably lower pole measuring 8.4 x 0.8 x 9.1 cm and 0.8 x 1.1 x 0.9 cm. SPLEEN: Normal in size and contour. No mass. AORTA: No aneurysmal dilatation. IVC: Unremarkable. OTHER FINDINGS: None. IMPRESSION: No gallbladder or pancreatic pathology noted. No gross liver pathology appreciated Multiple left renal cysts- the largest at the upper pole measuring up to 2.8 cm.
[2018-03-12] MEDS: Meropenem IV 1 gm in NS 50 ML IVPB SCH ×3 (05:58→21:55)
[2018-03-12 08:18] LABS: BASO # 0.1 K/uL (0.0-0.2); BASO % 1.1 % (0.0-2.0); EOS # 0.3 K/uL (0.0-0.7); EOS % 4.7 % (0.0-4.0); HEMOGLOBIN 12.4 g/dL (12.0-18.0); LYMPH # 1.4 K/uL (1.0-4.3); MEAN CELL VOLUME 76.2 fL (80.0-94.0); MEAN CORPUSCULAR HEMOGLOBIN 24.5 pg (27.0-31.0); MEAN CORPUSCULAR HGB CONC 32.1 g/dL (33.0-37.0); MEAN PLATELET VOLUME 8.4 fL (7.2-11.7); MONO # 0.6 K/uL (0.0-0.8); MONO % 8.7 % (0.0-10.0); NEUT # 4.4 K/uL (1.8-7.0); NEUT % 64.5 % (50.0-75.0); RBC 5.05 Mil/uL (4.40-5.90); RED CELL DISTRIBUTION WIDTH 14.6 % (11.5-14.5); WHITE BLOOD COUNT 6.8 K/uL (4.8-10.8)
[2018-03-12 08:41] LABS: ALB/GLOB RATIO 1.5 (1.0-2.1); ALBUMIN 3.6 g/dL (3.5-5.0); ALT/SGPT 25 U/L (21-72); AST/SGOT 18 U/L (17-59); BLOOD UREA NITROGEN 14 mg/dL (9-20); CALCIUM 8.6 mg/dl (8.6-10.4); GFR NON-AFRICAN AMERICAN > 60
[2018-03-12] MEDS: Multiple Vitamins Tab PO SCH (11:05)
[2018-03-12] MEDS: Lactobacillus Acidophilus 500 MU Cap PO SCH ×2 (11:11→18:01)
--- NOTE | 2018-03-12 11:14 | CP.PCM.PN ---
<Js Lin - Last Filed: 03/12/18 11:11> Subjective - Date & Time of Evaluation Date of Evaluation: 03/12/18 Time of Evaluation: 11:11 - Subjective Subjective: PGY-1 Medicine Progress Note for Dr. Anderson Patient seen and examined at bedside this am, resting comfortably and in no acute distress. R sided picc line in place. R submandibular swelling is resolved. No dysphagia, chest pain, abdominal pain, nausea/vomiting/diarrhea/ constipation noted. No other acute complaints. Objective - Vital Signs/Intake and Output Vital Signs (last 24 hours): Temp Pulse Resp BP Pulse Ox 97.9 F 59 L 20 161/93 H 99 03/12/18 07:46 03/12/18 07:46 03/12/18 07:46 03/12/18 07:46 03/12/18 07:46 - Medications Medications: Current Medications Aspirin (Aspirin Chewable) 81 mg PO DAILY [facility] Last Admin: 03/11/18 10:24 Dose: Not Given Chlordiazepoxide (Librium) 15 mg PO Q6 [facility] Last Admin: 03/12/18 05:58 Dose: Not Given Folic Acid (Folic Acid) 1 mg PO DAILY [facility] Last Admin: 03/11/18 10:24 Dose: Not Given Gabapentin (Neurontin) 300 mg PO BID [facility] Last Admin: 03/11/18 18:59 Dose: 300 mg Heparin Sodium (Porcine) (Heparin) 5,000 units SC Q12 [facility] Last Admin: 03/11/18 22:38 Dose: Not Given Meropenem (Merrem Iv 1 Gm Premix) 50 mls @ 100 mls/hr IVPB Q8H [facility] PRN Reason: Protocol Last Admin: 03/12/18 05:58 Dose: 100 mls/hr Lactobacillus Acidophilus (Bacid Acidophilus) 1 cap PO BID [facility] Last Admin: 03/11/18 18:59 Dose: 1 cap Multivitamins (Hexavitamin) 1 tab PO DAILY [facility] Last Admin: 03/11/18 10:24 Dose: Not Given Phenytoin Sodium (Dilantin) 100 mg PO BID [facility] Last Admin: 03/11/18 18:59 Dose: 100 mg Fluticasone/Salmeterol (Advair Diskus 250/50) 1 puff INH RQ12 [facility] Thiamine HCl (Vitamin B1 Tab) 100 mg PO DAILY [facility] Last Admin: 03/11/18 10:25 Dose: Not Given - Labs Labs: 03/12/18 08:09 03/12/18 08:09 - Constitutional Appears: Non-toxic, No Acute Distress - Head Exam Head Exam: ATRAUMATIC, NORMAL INSPECTION, NORMOCEPHALIC - Eye Exam Eye Exam: EOMI, Normal appearance Pupil Exam: NORMAL ACCOMODATION - ENT Exam ENT Exam: Mucous Membranes Moist, Normal Exam - Neck Exam Neck Exam: Normal Inspection - Respiratory Exam Respiratory Exam: Clear to Ausculation Bilateral, NORMAL BREATHING PATTERN. absent: Rales, Rhonchi, Wheezes, Stridor - Cardiovascular Exam Cardiovascular Exam: REGULAR RHYTHM, +S1, +S2 - GI/Abdominal Exam GI & Abdominal Exam: Soft, Normal Bowel Sounds. absent: Distended, Firm, Guarding, Rigid, Tenderness, Organomegaly, Rebound - Extremities Exam Extremities Exam: Normal Capillary Refill, Normal Inspection Additional comments: R sided PICC line in place - Back Exam Back Exam: NORMAL INSPECTION - Neurological Exam Neurological Exam: Alert, Awake, Oriented x3 - Psychiatric Exam Psychiatric exam: Normal Affect, Normal Mood - Skin Skin Exam: Dry, Intact, Normal Color, Warm Assessment and Plan - Assessment and Plan (Free Text) Assessment: 72 M with PMHx of CVA with right sided weakness, HTN, paroxysmal atrial fibrillation, COPD, seizure, history of coma x 4 years (woke up mid 2015, during time of his coma he had tracheostomy) presents to ED with a right side lump in submandibular region, since resolved. Awaiting ZULEIMA placement with PICC line in place for tx of ESB+ Klebsiella UTI. Plan: Inflammation of R submandibular gland 2/2 sialolithiasis, w/o abscess--resolved -patient is nontoxic, afebrile -delineated swelling has decreased Imaging: -CT head (03/07): most likely represent a inflammatory/infectious process of the right submandibular gland with surrounding infiltration changes of the subcutaneous tissues and thickening of the platysma and skin surface. No evidence of submandibular gland or submandibular duct stones seen. Medications: -Solumedrol 125 mg IV Once UTI - UA: LE 1+, protein 2+, bacteria--moderate - WBC 6.8 (03/12) - UCx (03/09): Klebsiella pneumoniae ESBL (+), >100K CFUs - ID recs (Dr. Ashton) appreciated --meropenem adjusted: Merrem IV 1 gm Premix 50 mls @ 100cc/hr --PICC line in place for IV abx, 14 days total Hx of Alcohol use - telemetry monitoring Medications -Folic acid 1 mg PO daily -Thiamine 100 mg PO daily -Multivitamin 1 tab PO daily -Librium 15 mg PO q6, hold if lethargic--pt refusing librium (03/08) Low MCV - F/u Iron levels Hx of HTN - currently on no medication - will monitor, add therapy as necessary Hx Paroxymal Afib - continue home medication: -Aspirin 81mg daily Hx of COPD - continue home medications: -Advair Diskus 250/50 1 puff Q12 - Mometasone 220 puff QPM Hx of Seizure - continue home medication: -Phenytoin 100 mg BID -Gabapentin 300 mg BID Prophylaxis, Diet, Disposition - DVT: heparin 5000 units SC Q12; SCDs - heart healthy diet - contact precautions -Dispo: Pt to be d/c'd to [facility] with picc line in place for 14 days of meropenem. Awaiting social placement. Case discussed with Dr. Justin Lin DO, PGY1 <Kendy Anderson - Last Filed: 03/13/18 19:10> Objective - Vital Signs/Intake and Output Vital Signs (last 24 hours): Temp Pulse Resp BP Pulse Ox 97.5 F L 50 L 20 128/83 97 03/13/18 16:00 03/13/18 16:00 03/13/18 16:00 03/13/18 16:00 03/13/18 16:00 Intake and Output: 03/13/18 03/14/18 18:59 06:59 Intake Total 820 Output Total 900 Balance -80 - Medications Medications: Current Medications Aspirin (Aspirin Chewable) 81 mg PO DAILY [facility] Last Admin: 03/13/18 11:01 Dose: 81 mg Chlordiazepoxide (Librium) 15 mg PO Q6 [facility] Last Admin: 03/13/18 18:16 Dose: Not Given Folic Acid (Folic Acid) 1 mg PO DAILY [facility] Last Admin: 03/13/18 13:53 Dose: 1 mg Gabapentin (Neurontin) 300 mg PO BID [facility] Last Admin: 03/13/18 18:16 Dose: 300 mg Meropenem (Merrem Iv 1 Gm Premix) 50 mls @ 100 mls/hr IVPB Q8H [facility] PRN Reason: Protocol Last Admin: 03/13/18 13:53 Dose: 100 mls/hr Lactobacillus Acidophilus (Bacid Acidophilus) 1 cap PO BID [facility] Last Admin: 03/13/18 18:16 Dose: 1 cap Multivitamins (Hexavitamin) 1 tab PO DAILY [facility] Last Admin: 03/13/18 11:01 Dose: 1 tab Phenytoin Sodium (Dilantin) 100 mg PO BID [facility] Last Admin: 03/13/18 18:16 Dose: 100 mg Fluticasone/Salmeterol (Advair Diskus 250/50) 1 puff INH RQ12 [facility] Thiamine HCl (Vitamin B1 Tab) 100 mg PO DAILY [facility] Last Admin: 03/13/18 11:02 Dose: 100 mg - Labs Labs: 03/13/18 07:47 03/13/18 07:47 Attending/Attestation - Attestation I have personally seen and examined this patient.: Yes I have fully participated in the care of the patient.: Yes I have reviewed all pertinent clinical information, including history, physical exam and plan: Yes Notes (Text): seen and examined,no complain,s/p high BP. Patient doesn't wants new meds , monitor his blood pressure. Continue antibiotics . Pending discharge to rehab Discussed with the resident and I agree with the documentation
--- NOTE | 2018-03-12 15:46 | CP.PCM.PN ---
Subjective - Date & Time of Evaluation Date of Evaluation: 03/12/18 Time of Evaluation: 07:00 - Subjective Subjective: afeb alert nad Objective - Vital Signs/Intake and Output Vital Signs (last 24 hours): Temp Pulse Resp BP Pulse Ox 97.9 F 59 L 20 161/93 H 99 03/12/18 07:46 03/12/18 07:46 03/12/18 07:46 03/12/18 07:46 03/12/18 07:46 - Medications Medications: Current Medications Aspirin (Aspirin Chewable) 81 mg PO DAILY [facility] Last Admin: 03/12/18 11:05 Dose: 81 mg Chlordiazepoxide (Librium) 15 mg PO Q6 [facility] Last Admin: 03/12/18 12:22 Dose: Not Given Folic Acid (Folic Acid) 1 mg PO DAILY [facility] Last Admin: 03/12/18 11:05 Dose: 1 mg Gabapentin (Neurontin) 300 mg PO BID [facility] Last Admin: 03/12/18 11:05 Dose: 300 mg Heparin Sodium (Porcine) (Heparin) 5,000 units SC Q12 [facility] Last Admin: 03/12/18 11:07 Dose: Not Given Meropenem (Merrem Iv 1 Gm Premix) 50 mls @ 100 mls/hr IVPB Q8H [facility] PRN Reason: Protocol Last Admin: 03/12/18 14:15 Dose: 100 mls/hr Lactobacillus Acidophilus (Bacid Acidophilus) 1 cap PO BID [facility] Last Admin: 03/12/18 11:11 Dose: 1 cap Multivitamins (Hexavitamin) 1 tab PO DAILY [facility] Last Admin: 03/12/18 11:05 Dose: 1 tab Phenytoin Sodium (Dilantin) 100 mg PO BID [facility] Last Admin: 03/12/18 11:05 Dose: 100 mg Fluticasone/Salmeterol (Advair Diskus 250/50) 1 puff INH RQ12 [facility] Thiamine HCl (Vitamin B1 Tab) 100 mg PO DAILY [facility] Last Admin: 03/12/18 11:05 Dose: 100 mg - Labs Labs: 03/12/18 08:09 03/12/18 08:09 - Constitutional Appears: Non-toxic, Chronically Ill - Head Exam Head Exam: NORMOCEPHALIC - Eye Exam Eye Exam: PERRL - ENT Exam ENT Exam: Mucous Membranes Dry - Neck Exam Neck Exam: absent: Lymphadenopathy - Respiratory Exam Respiratory Exam: Decreased Breath Sounds - Cardiovascular Exam Cardiovascular Exam: REGULAR RHYTHM - GI/Abdominal Exam GI & Abdominal Exam: Distended, Soft - Rectal Exam Rectal Exam: Deferred - Exam Exam: NORMAL INSPECTION - Extremities Exam Extremities Exam: absent: Pedal Edema - Back Exam Back Exam: absent: CVA tenderness (L), CVA tenderness (R) - Neurological Exam Neurological Exam: Alert, Awake, Oriented x3 - Psychiatric Exam Psychiatric exam: Normal Mood - Skin Skin Exam: Petechiae Assessment and Plan (1) ESBL (extended spectrum beta-lactamase) producing bacteria infection Status: Acute (2) Submandibular gland infection Status: Acute (3) Urinary tract infection Status: Acute - Assessment and Plan (Free Text) Assessment: cont iv rx for total 14 days
[2018-03-13] MEDS: Meropenem IV 1 gm in NS 50 ML IVPB SCH ×2 (05:46→13:53)
--- NOTE | 2018-03-13 07:22 | CP.PCM.PN ---
<Js Lin - Last Filed: 03/13/18 16:04> Subjective - Date & Time of Evaluation Date of Evaluation: 03/13/18 Time of Evaluation: 07:15 - Subjective Subjective: PGY-1 Medicine Progress Note for Dr. Anderson Patient seen and examined at bedside this AM, resting comfortably and in no acute distress. Patient endorses increased urinary frequency, continues to deny dysuria. No other acute complaints. No fevers/chills, headachess, dizziness, chest pain, palpitations, sob, abdominal pain, nausea/vomiting/diarrhea/ constipation. Objective - Vital Signs/Intake and Output Vital Signs (last 24 hours): Temp Pulse Resp BP Pulse Ox 98.1 F 63 20 124/86 98 03/12/18 23:25 03/12/18 23:25 03/12/18 23:25 03/12/18 23:25 03/12/18 23:25 Intake and Output: 03/13/18 03/13/18 06:59 18:59 Intake Total 550 Balance 550 - Medications Medications: Current Medications Aspirin (Aspirin Chewable) 81 mg PO DAILY [facility] Last Admin: 03/12/18 11:05 Dose: 81 mg Chlordiazepoxide (Librium) 15 mg PO Q6 [facility] Last Admin: 03/13/18 05:55 Dose: Not Given Folic Acid (Folic Acid) 1 mg PO DAILY [facility] Last Admin: 03/12/18 11:05 Dose: 1 mg Gabapentin (Neurontin) 300 mg PO BID [facility] Last Admin: 03/12/18 18:02 Dose: 300 mg Heparin Sodium (Porcine) (Heparin) 5,000 units SC Q12 [facility] Last Admin: 03/12/18 21:53 Dose: Not Given Meropenem (Merrem Iv 1 Gm Premix) 50 mls @ 100 mls/hr IVPB Q8H [facility] PRN Reason: Protocol Last Admin: 03/13/18 05:46 Dose: 100 mls/hr Lactobacillus Acidophilus (Bacid Acidophilus) 1 cap PO BID [facility] Last Admin: 03/12/18 18:01 Dose: 1 cap Multivitamins (Hexavitamin) 1 tab PO DAILY [facility] Last Admin: 03/12/18 11:05 Dose: 1 tab Phenytoin Sodium (Dilantin) 100 mg PO BID [facility] Last Admin: 09/12/18 18:02 Dose: 100 mg Fluticasone/Salmeterol (Advair Diskus 250/50) 1 puff INH RQ12 [facility] Thiamine HCl (Vitamin B1 Tab) 100 mg PO DAILY [facility] Last Admin: 03/12/18 11:05 Dose: 100 mg - Labs Labs: 03/12/18 08:09 03/12/18 08:09 - Constitutional Appears: Non-toxic, No Acute Distress - Head Exam Head Exam: ATRAUMATIC, NORMAL INSPECTION, NORMOCEPHALIC - Eye Exam Eye Exam: EOMI, Normal appearance Pupil Exam: NORMAL ACCOMODATION - ENT Exam ENT Exam: Mucous Membranes Moist, Normal Exam Additional comments: Decreased breathing d/t L nare obstruction. Following ENT (Dr. Avendaño) in outpatient. - Neck Exam Neck Exam: Normal Inspection. absent: Lymphadenopathy, Tenderness - Respiratory Exam Respiratory Exam: Clear to Ausculation Bilateral, NORMAL BREATHING PATTERN. absent: Rales, Rhonchi, Wheezes - Cardiovascular Exam Cardiovascular Exam: REGULAR RHYTHM, +S1, +S2 - GI/Abdominal Exam GI & Abdominal Exam: Soft, Normal Bowel Sounds. absent: Distended, Firm, Guarding, Rigid, Tenderness, Mass, Rebound - Extremities Exam Extremities Exam: Normal Capillary Refill, Normal Inspection. absent: Joint Swelling, Pedal Edema, Tenderness - Back Exam Back Exam: NORMAL INSPECTION - Neurological Exam Neurological Exam: Alert, Awake, CN II-XII Intact, Oriented x3 - Psychiatric Exam Psychiatric exam: Normal Affect, Normal Mood - Skin Skin Exam: Dry, Intact, Normal Color, Warm Assessment and Plan - Assessment and Plan (Free Text) Assessment: 72 M with PMHx of CVA with right sided weakness, HTN, paroxysmal atrial fibrillation, COPD, seizure, history of coma x 4 years (woke up mid 2015, during time of his coma he had tracheostomy) presents to ED with a right side lump in submandibular region, since resolved. Awaiting [facility] placement with PICC line in place for tx of ESB+ Klebsiella UTI. Plan: Inflammation of R submandibular gland 2/2 sialolithiasis, w/o abscess--resolved -patient is nontoxic, afebrile -delineated swelling has decreased Imaging: -CT head (03/07): most likely represent a inflammatory/infectious process of the right submandibular gland with surrounding infiltration changes of the subcutaneous tissues and thickening of the platysma and skin surface. No evidence of submandibular gland or submandibular duct stones seen. Medications: -Solumedrol 125 mg IV Once UTI - UA: LE 1+, protein 2+, bacteria--moderate - WBC 6.8 (03/12) - UCx (03/09): Klebsiella pneumoniae ESBL (+), >100K CFUs - ID recs (Dr. Ashton) appreciated --meropenem adjusted: Merrem IV 1 gm Premix 50 mls @ 100cc/hr --PICC line in place for IV abx, 14 days total Hx of Alcohol use - telemetry monitoring Medications -Folic acid 1 mg PO daily -Thiamine 100 mg PO daily -Multivitamin 1 tab PO daily -Librium 15 mg PO q6, hold if lethargic--pt refusing librium (03/08) Low MCV - F/u Iron levels Hx of HTN - currently on no medication - will monitor, add therapy as necessary Hx Paroxymal Afib - continue home medication: -Aspirin 81mg daily Hx of COPD - continue home medications: -Advair Diskus 250/50 1 puff Q12 - Mometasone 220 puff QPM Hx of Seizure - continue home medication: -Phenytoin 100 mg BID -Gabapentin 300 mg BID Prophylaxis, Diet, Disposition - DVT: heparin 5000 units SC Q12; SCDs - heart healthy diet - contact precautions -Dispo: Pt to be d/c'd to [facility] with picc line in place for 14 days of meropenem. Awaiting social placement. Case discussed with Dr. Justin Lin DO, PGY1 <Kendy Anderson - Last Filed: 03/13/18 19:08> Objective - Vital Signs/Intake and Output Vital Signs (last 24 hours): Temp Pulse Resp BP Pulse Ox 97.5 F L 50 L 20 128/83 97 03/13/18 16:00 03/13/18 16:00 03/13/18 16:00 03/13/18 16:00 03/13/18 16:00 Intake and Output: 03/13/18 03/14/18 18:59 06:59 Intake Total 820 Output Total 900 Balance -80 - Medications Medications: Current Medications Aspirin (Aspirin Chewable) 81 mg PO DAILY [facility] Last Admin: 09/13/18 11:01 Dose: 81 mg Chlordiazepoxide (Librium) 15 mg PO Q6 [facility] Last Admin: 03/13/18 18:16 Dose: Not Given Folic Acid (Folic Acid) 1 mg PO DAILY [facility] Last Admin: 03/13/18 13:53 Dose: 1 mg Gabapentin (Neurontin) 300 mg PO BID [facility] Last Admin: 03/13/18 18:16 Dose: 300 mg Meropenem (Merrem Iv 1 Gm Premix) 50 mls @ 100 mls/hr IVPB Q8H [facility] PRN Reason: Protocol Last Admin: 03/13/18 13:53 Dose: 100 mls/hr Lactobacillus Acidophilus (Bacid Acidophilus) 1 cap PO BID [facility] Last Admin: 03/13/18 18:16 Dose: 1 cap Multivitamins (Hexavitamin) 1 tab PO DAILY [facility] Last Admin: 03/13/18 11:01 Dose: 1 tab Phenytoin Sodium (Dilantin) 100 mg PO BID [facility] Last Admin: 03/13/18 18:16 Dose: 100 mg Fluticasone/Salmeterol (Advair Diskus 250/50) 1 puff INH RQ12 [facility] Thiamine HCl (Vitamin B1 Tab) 100 mg PO DAILY [facility] Last Admin: 03/13/18 11:02 Dose: 100 mg - Labs Labs: 03/13/18 07:47 03/13/18 07:47 Attending/Attestation - Attestation I have personally seen and examined this patient.: Yes I have fully participated in the care of the patient.: Yes I have reviewed all pertinent clinical information, including history, physical exam and plan: Yes Notes (Text): Seen and examined by me .No complain. discussed with the resident. Parotid gland swelling is better continue antibiotics for ESBL as per Dr Rivero D/c to rehab tomorrow for antibiotics and for PT Discussed with the resident and I agree with the documentation
[2018-03-13 08:05] LABS: BASO % 0.8 % (0.0-2.0); EOS # 0.3 K/uL (0.0-0.7); EOS % 5.3 % (0.0-4.0); LYMPH # 1.3 K/uL (1.0-4.3); LYMPH % 22.3 % (20.0-40.0); MEAN CELL VOLUME 76.5 fL (80.0-94.0); MEAN CORPUSCULAR HEMOGLOBIN 24.6 pg (27.0-31.0); MEAN CORPUSCULAR HGB CONC 32.2 g/dL (33.0-37.0); MEAN PLATELET VOLUME 8.5 fL (7.2-11.7); MONO # 0.6 K/uL (0.0-0.8); MONO % 9.5 % (0.0-10.0); NEUT # 3.7 K/uL (1.8-7.0); NEUT % 62.1 % (50.0-75.0); RBC 4.88 Mil/uL (4.40-5.90); RED CELL DISTRIBUTION WIDTH 14.9 % (11.5-14.5)
[2018-03-13 08:34] LABS: ALB/GLOB RATIO 1.4 (1.0-2.1); ALBUMIN 3.5 g/dL (3.5-5.0); ALT/SGPT 25 U/L (21-72); AST/SGOT 21 U/L (17-59); BLOOD UREA NITROGEN 17 mg/dL (9-20); CALCIUM 8.6 mg/dl (8.6-10.4); GFR NON-AFRICAN AMERICAN > 60
[2018-03-13] MEDS: Multiple Vitamins Tab PO SCH (11:01)
[2018-03-13] MEDS: Lactobacillus Acidophilus 500 MU Cap PO SCH ×2 (11:02→18:16)
--- NOTE | 2018-03-13 18:36 | CP.PCM.PN ---
Subjective - Date & Time of Evaluation Date of Evaluation: 03/13/18 Time of Evaluation: 08:00 - Subjective Subjective: improving less pain and less swelling Objective - Vital Signs/Intake and Output Vital Signs (last 24 hours): Temp Pulse Resp BP Pulse Ox 97.5 F L 50 L 20 128/83 97 03/13/18 16:00 03/13/18 16:00 03/13/18 16:00 03/13/18 16:00 03/13/18 16:00 Intake and Output: 03/13/18 03/13/18 06:59 18:59 Intake Total 550 820 Output Total 900 Balance 550 -80 - Medications Medications: Current Medications Aspirin (Aspirin Chewable) 81 mg PO DAILY [facility] Last Admin: 03/13/18 11:01 Dose: 81 mg Chlordiazepoxide (Librium) 15 mg PO Q6 [facility] Last Admin: 03/13/18 18:16 Dose: Not Given Folic Acid (Folic Acid) 1 mg PO DAILY [facility] Last Admin: 03/13/18 13:53 Dose: 1 mg Gabapentin (Neurontin) 300 mg PO BID [facility] Last Admin: 03/13/18 18:16 Dose: 300 mg Meropenem (Merrem Iv 1 Gm Premix) 50 mls @ 100 mls/hr IVPB Q8H [facility] PRN Reason: Protocol Last Admin: 03/13/18 13:53 Dose: 100 mls/hr Lactobacillus Acidophilus (Bacid Acidophilus) 1 cap PO BID [facility] Last Admin: 03/13/18 18:16 Dose: 1 cap Multivitamins (Hexavitamin) 1 tab PO DAILY [facility] Last Admin: 03/13/18 11:01 Dose: 1 tab Phenytoin Sodium (Dilantin) 100 mg PO BID [facility] Last Admin: 03/13/18 18:16 Dose: 100 mg Fluticasone/Salmeterol (Advair Diskus 250/50) 1 puff INH RQ12 [facility] Thiamine HCl (Vitamin B1 Tab) 100 mg PO DAILY [facility] Last Admin: 03/13/18 11:02 Dose: 100 mg - Labs Labs: 03/13/18 07:47 03/13/18 07:47 - Constitutional Appears: Non-toxic, Chronically Ill - Head Exam Head Exam: NORMOCEPHALIC - Eye Exam Eye Exam: PERRL - ENT Exam ENT Exam: Mucous Membranes Dry - Neck Exam Neck Exam: absent: Lymphadenopathy - Respiratory Exam Respiratory Exam: Decreased Breath Sounds - Cardiovascular Exam Cardiovascular Exam: REGULAR RHYTHM - GI/Abdominal Exam GI & Abdominal Exam: Distended, Soft Assessment and Plan (1) ESBL (extended spectrum beta-lactamase) producing bacteria infection Status: Acute (2) Submandibular gland infection Status: Acute (3) Urinary tract infection Status: Acute
--- NOTE | 2018-03-14 07:43 | CP.PCM.DIS ---
<Js Lin - Last Filed: 03/14/18 07:55> Provider - Provider Date of Admission: 03/11/18 15:18 Attending physician: Kendy Anderson MD Primary care physician: Pedro Pablo Patterson MD Time Spent in preparation of Discharge (in minutes): 40 Hospital Course - Lab Results Lab Results: Micro Results 03/07/18 19:00 Blood-Venous Blood Culture - Final NO GROWTH AFTER 5 DAYS 03/07/18 19:00 Blood-Venous Gram Stain - Final TEST NOT PERFORMED 03/07/18 15:32 Blood-Venous Blood Culture - Preliminary 03/07/18 15:32 Blood-Venous Gram Stain - Final 03/07/18 15:20 Urine Urine Culture - Final Klebsiella Pneumoniae Ssp Pneu 03/07/18 15:57 Throat Group A Strep Throat Culture - Final NO BETA STREP GROUP A ISOLATED. Most Recent Lab Values WBC 6.0 K/uL (4.8-10.8) 03/13/18 07:47 RBC 4.88 Mil/uL (4.40-5.90) 03/13/18 07:47 Hgb 12.0 g/dL (12.0-18.0) 03/13/18 07:47 Hct 37.3 % (35.0-51.0) 03/13/18 07:47 MCV 76.5 fL (80.0-94.0) L 03/13/18 07:47 MCH 24.6 pg (27.0-31.0) L 03/13/18 07:47 MCHC 32.2 g/dL (33.0-37.0) L 03/13/18 07:47 RDW 14.9 % (11.5-14.5) H 03/13/18 07:47 Plt Count 246 K/uL (130-400) 03/13/18 07:47 MPV 8.5 fL (7.2-11.7) 03/13/18 07:47 Neut % (Auto) 62.1 % (50.0-75.0) 03/13/18 07:47 Lymph % (Auto) 22.3 % (20.0-40.0) 03/13/18 07:47 [place] % (Auto) 9.5 % (0.0-10.0) 03/13/18 07:47 Eos % (Auto) 5.3 % (0.0-4.0) H 03/13/18 07:47 Baso % (Auto) 0.8 % (0.0-2.0) 03/13/18 07:47 Neut # (Auto) 3.7 K/uL (1.8-7.0) 03/13/18 07:47 Lymph # (Auto) 1.3 K/uL (1.0-4.3) 03/13/18 07:47 [place] # (Auto) 0.6 K/uL (0.0-0.8) 03/13/18 07:47 Eos # (Auto) 0.3 K/uL (0.0-0.7) 03/13/18 07:47 Baso # (Auto) 0.0 K/uL (0.0-0.2) 03/13/18 07:47 Sodium 139 mmol/L (132-148) 03/13/18 07:47 Potassium 4.9 mmol/L (3.6-5.2) 03/13/18 07:47 Chloride 105 mmol/L (98-107) 03/13/18 07:47 Carbon Dioxide 29 mmol/L (22-30) 03/13/18 07:47 Anion Gap 10 (10-20) 03/13/18 07:47 BUN 17 mg/dL (9-20) 03/13/18 07:47 Creatinine 0.8 mg/dL (0.8-1.5) 03/13/18 07:47 Est GFR ( Amer) > 60 03/13/18 07:47 Est GFR (Non-Af Amer) > 60 03/13/18 07:47 Random Glucose 78 mg/dL (75-110) 03/13/18 07:47 Calcium 8.6 mg/dl (8.6-10.4) 03/13/18 07:47 Total Bilirubin 0.2 mg/dL (0.2-1.3) 03/13/18 07:47 AST 21 U/L (17-59) 03/13/18 07:47 ALT 25 U/L (21-72) 03/13/18 07:47 Alkaline Phosphatase 170 U/L (38-126) H 03/13/18 07:47 Total Protein 6.1 g/dL (6.3-8.3) L 03/13/18 07:47 Albumin 3.5 g/dL (3.5-5.0) 03/13/18 07:47 Globulin 2.6 gm/dL (2.2-3.9) 03/13/18 07:47 Albumin/Globulin Ratio 1.4 (1.0-2.1) 03/13/18 07:47 Urine Color Yellow (YELLOW) 03/07/18 15:20 Urine Clarity Clear (Clear) 03/07/18 15:20 Urine pH 6.0 (5.0-8.0) 03/07/18 15:20 Ur Specific [place] 1.013 (1.003-1.030) 03/07/18 15:20 Urine Protein 2+ mg/dL (NEGATIVE) H 03/07/18 15:20 Urine Glucose (UA) Normal mg/dL (Normal) 03/07/18 15:20 Urine Ketones Negative mg/dL (NEGATIVE) 03/07/18 15:20 Urine Blood Negative (NEGATIVE) 03/07/18 15:20 Urine Nitrate Negative (NEGATIVE) 03/07/18 15:20 Urine Bilirubin Negative (NEGATIVE) 03/07/18 15:20 Urine Urobilinogen Normal mg/dL (0.2-1.0) 03/07/18 15:20 Ur Leukocyte Esterase 1+ Artis/uL (Negative) H 03/07/18 15:20 Urine WBC (Auto) 15 /hpf (0-5) H 03/07/18 15:20 Urine RBC (Auto) 1 /hpf (0-3) 03/07/18 15:20 Ur Squamous Epith Cells < 1 /hpf (0-5) 03/07/18 15:20 Urine Bacteria Mod (<OCC) H 03/07/18 15:20 Grp A Beta Strep Ag Negative (NEGATIVE) 03/07/18 15:57 - Hospital Course Hospital Course: Mr. Archer is a 72 yo male with past medical history of CVA with residual right sided weakness, hypertension, paroxysmal atrial fibrillation , COPD, seizure, and history of coma x 4 years (woke up mid 2015, during time of his coma he had tracheostomy) who presented to the ED on 03/07 with a right sided lump in the submandibular region. Patient stated it appeared suddenly 3 days prior to admission and worsened 1 day prior. Patient stated it is tender to palpation and is painful when eating. Patient states he was on antibiotics 1 weeks prior for a UTI that was treated by his urologist (Dr. Agnieszka Velazco). He also endorsed decreased breathing secondary to inflammation of his left nare that is currently being managed by his ENT (Dr. Avendaño) outpatient. He denied any chest pain, abdominal pain, constipation, trouble with urination. CT of the head (03/07) demonstrated a likely inflammatory/infectious process of the R submandibular gland with surrounding infiltrative changes of the subcutatenous tissues and thickening of the platysma and skin surface. No evidence of submandibular gland or ductal stones were noted. UA was positive with +1 LE and moderate amounts of bacteria. He was given solumedrol 125 mg IV once, per ENT, for the submandibular swelling and started on Rocephin 1 gm daily & clindamycin 300 mg q6 for broad spectrum coverage of his urinary tract infection. He was also continued on all his home medicationn as prescribed aside from Librium, which the patient refused. The patient responded well to treatment and his submandibular swelling subsided. Patient remained afebrile during the course of admission and had no leukocytosis. He no longer complained of tenderness to the submandibular region and his dysphagia resolved. He was medically stable for discharge on 03/09; however, his urine culture grew positive for ESBL (+) klebsiella pneumoniae with over 100K colonies. ID was consulted (Dr. Ashton) for appropriate antibiotic coverage. Rocephin and clindamycin were stopped and patient was started on Meropemen 1 gm IV. Throughout his course, the patient continued to refuse blood draws to monitor progression of his infection. He agreed to have a PICC line placed and continue IV antibiotic treatment for a total of 14 days, per ID recommendations. PICC line was placed (03/11) with no complications, and blood drawn showed a stable WBC count of 6.8. Patient continued to remain afebrile during admission with no urinary symptoms. He is medically stable for discharge to subacute rehab, as per Dr. Anderson. He is instructed to continue his IV antibiotic treatment course for a total of 14 days, after which his PICC line is to be removed: Meropenem 1 gm in 50 mL IVP q8 Patient to continue all home medications, as prescribed. He is also instructed to please follow up with PMD within 1-2 weeks of discharge from rehab. This is a summary of hospital course. Please refer to EMR for full detail. Discharge Exam - Head Exam Head Exam: NORMOCEPHALIC - Eye Exam Eye Exam: EOMI, Normal appearance Pupil Exam: NORMAL ACCOMODATION - ENT Exam ENT Exam: Mucous Membranes Moist, Normal Exam - Neck Exam Neck exam: Normal Inspection - Respiratory Exam Respiratory Exam: Clear to PA & Lateral, NORMAL BREATHING PATTERN, UNREMARKABLE. absent: Rales, Wheezes, Stridor - Cardiovascular Exam Cardiovascular Exam: REGULAR RHYTHM, +S1, +S2 - GI/Abdominal Exam GI & Abdominal Exam: Normal Bowel Sounds, Soft, Unremarkable. absent: Distended , Firm, Guarding, Rebound, Rigid, Tenderness - Extremities Exam Extremities exam: normal capillary refill, normal inspection, pedal pulses present - Back Exam Back exam: NORMAL INSPECTION - Neurological Exam Neurological exam: Alert, CN II-XII Intact, Normal Gait, Oriented x3 - Psychiatric Exam Psychiatric exam: Normal Affect, Normal Mood - Skin Skin Exam: Dry, Intact, Normal Color, Warm Discharge Plan - Discharge Medications Prescriptions: Meropenem IV 1 gm in NS [Merrem IV 1 gm Premix] 1 gm IVPB Q8 10 Days bag - Follow Up Plan Condition: GOOD Disposition: HOME/ ROUTINE Instructions: Smoking: Not Just Harmful to Your Lungs and Heart, Peripherally- Inserted Central Catheter, How to Care for a Central Line Catheter, Quitting Smoking, Salivary Gland Infection (DC), Urinary Tract Infection in Men (DC) Additional Instructions: Patient is medically stable for discharge to subacute rehab, as per Dr. Anderson. He is instructed to continue the following IV antibiotic course for a total of 14 days, after which his PICC line is to be removed: Meropenem 1gm in 50 mL IVP every 8 hours for 14 days total (Started on 03/10/18) . Last dose on 03/24/18 Patient to continue all home medications, as prescribed. He is also instructed to please follow up with PMD within 1-2 weeks of discharge from rehab. If symptoms worsen, please return to ED. Take care and be well. Referrals: Pedro Pablo Patterson MD [Primary Care Provider] - <Kendy Anderson - Last Filed: 03/14/18 16:06> Provider - Provider Date of Admission: 03/11/18 15:18 Attending physician: Kendy Anderson MD Primary care physician: Pedro Pablo Patterson MD Hospital Course - Lab Results Lab Results: Micro Results 03/07/18 15:32 Blood-Venous Blood Culture - Preliminary 03/07/18 15:32 Blood-Venous Gram Stain - Final 03/07/18 19:00 Blood-Venous Blood Culture - Final NO GROWTH AFTER 5 DAYS 03/07/18 19:00 Blood-Venous Gram Stain - Final TEST NOT PERFORMED 03/07/18 15:20 Urine Urine Culture - Final Klebsiella Pneumoniae Ssp Pneu 03/07/18 15:57 Throat Group A Strep Throat Culture - Final NO BETA STREP GROUP A ISOLATED. Most Recent Lab Values WBC 6.5 K/uL (4.8-10.8) 03/14/18 07:49 RBC 4.88 Mil/uL (4.40-5.90) 03/14/18 07:49 Hgb 12.0 g/dL (12.0-18.0) 03/14/18 07:49 Hct 37.6 % (35.0-51.0) 03/14/18 07:49 MCV 77.0 fL (80.0-94.0) L 03/14/18 07:49 MCH 24.6 pg (27.0-31.0) L 03/14/18 07:49 MCHC 31.9 g/dL (33.0-37.0) L 03/14/18 07:49 RDW 14.6 % (11.5-14.5) H 03/14/18 07:49 Plt Count 244 K/uL (130-400) 03/14/18 07:49 MPV 8.3 fL (7.2-11.7) 03/14/18 07:49 Neut % (Auto) 63.8 % (50.0-75.0) 03/14/18 07:49 Lymph % (Auto) 20.9 % (20.0-40.0) 03/14/18 07:49 [place] % (Auto) 10.2 % (0.0-10.0) H 03/14/18 07:49 Eos % (Auto) 4.5 % (0.0-4.0) H 03/14/18 07:49 Baso % (Auto) 0.6 % (0.0-2.0) 03/14/18 07:49 Neut # (Auto) 4.2 K/uL (1.8-7.0) 03/14/18 07:49 Lymph # (Auto) 1.4 K/uL (1.0-4.3) 03/14/18 07:49 [place] # (Auto) 0.7 K/uL (0.0-0.8) 03/14/18 07:49 Eos # (Auto) 0.3 K/uL (0.0-0.7) 03/14/18 07:49 Baso # (Auto) 0.0 K/uL (0.0-0.2) 03/14/18 07:49 Sodium 140 mmol/L (132-148) 03/14/18 07:49 Potassium 5.0 mmol/L (3.6-5.2) 03/14/18 07:49 Chloride 106 mmol/L (98-107) 03/14/18 07:49 Carbon Dioxide 25 mmol/L (22-30) 03/14/18 07:49 Anion Gap 14 (10-20) 03/14/18 07:49 BUN 18 mg/dL (9-20) 03/14/18 07:49 Creatinine 0.8 mg/dL (0.8-1.5) 03/14/18 07:49 Est GFR ( Amer) > 60 03/14/18 07:49 Est GFR (Non-Af Amer) > 60 03/14/18 07:49 Random Glucose 82 mg/dL (75-110) 03/14/18 07:49 Calcium 8.7 mg/dl (8.6-10.4) 03/14/18 07:49 Total Bilirubin 0.2 mg/dL (0.2-1.3) 03/14/18 07:49 AST 21 U/L (17-59) 03/14/18 07:49 ALT 27 U/L (21-72) 03/14/18 07:49 Alkaline Phosphatase 162 U/L (38-126) H 03/14/18 07:49 Total Protein 6.0 g/dL (6.3-8.3) L 09/14/18 07:49 Albumin 3.5 g/dL (3.5-5.0) 03/14/18 07:49 Globulin 2.5 gm/dL (2.2-3.9) 03/14/18 07:49 Albumin/Globulin Ratio 1.4 (1.0-2.1) 03/14/18 07:49 Urine Color Yellow (YELLOW) 03/07/18 15:20 Urine Clarity Clear (Clear) 03/07/18 15:20 Urine pH 6.0 (5.0-8.0) 03/07/18 15:20 Ur Specific [place] 1.013 (1.003-1.030) 03/07/18 15:20 Urine Protein 2+ mg/dL (NEGATIVE) H 03/07/18 15:20 Urine Glucose (UA) Normal mg/dL (Normal) 03/07/18 15:20 Urine Ketones Negative mg/dL (NEGATIVE) 03/07/18 15:20 Urine Blood Negative (NEGATIVE) 03/07/18 15:20 Urine Nitrate Negative (NEGATIVE) 03/07/18 15:20 Urine Bilirubin Negative (NEGATIVE) 03/07/18 15:20 Urine Urobilinogen Normal mg/dL (0.2-1.0) 03/07/18 15:20 Ur Leukocyte Esterase 1+ Artis/uL (Negative) H 03/07/18 15:20 Urine WBC (Auto) 15 /hpf (0-5) H 03/07/18 15:20 Urine RBC (Auto) 1 /hpf (0-3) 03/07/18 15:20 Ur Squamous Epith Cells < 1 /hpf (0-5) 03/07/18 15:20 Urine Bacteria Mod (<OCC) H 03/07/18 15:20 Grp A Beta Strep Ag Negative (NEGATIVE) 03/07/18 15:57 Attending/Attestation - Attestation I have personally seen and examined this patient.: Yes I have fully participated in the care of the patient.: Yes I have reviewed all pertinent clinical information, including history, physical exam and plan: Yes Notes (Text): Patient will be discharge to rehab today.Continue antibiotics at rehab . follow his primary care physician and his urologist as an out patient after discharge. Recommending to remove his picc line after completing his antibiotics
[2018-03-14 08:16] LABS: BASO % 0.6 % (0.0-2.0); EOS # 0.3 K/uL (0.0-0.7); EOS % 4.5 % (0.0-4.0); LYMPH # 1.4 K/uL (1.0-4.3); LYMPH % 20.9 % (20.0-40.0); MEAN CORPUSCULAR HEMOGLOBIN 24.6 pg (27.0-31.0); MEAN CORPUSCULAR HGB CONC 31.9 g/dL (33.0-37.0); MEAN PLATELET VOLUME 8.3 fL (7.2-11.7); MONO # 0.7 K/uL (0.0-0.8); MONO % 10.2 % (0.0-10.0); NEUT # 4.2 K/uL (1.8-7.0); NEUT % 63.8 % (50.0-75.0); NRBC % 0.1 % (0.0-2.0); RBC 4.88 Mil/uL (4.40-5.90); RED CELL DISTRIBUTION WIDTH 14.6 % (11.5-14.5); WHITE BLOOD COUNT 6.5 K/uL (4.8-10.8)
[2018-03-14 08:27] LABS: ALB/GLOB RATIO 1.4 (1.0-2.1); ALBUMIN 3.5 g/dL (3.5-5.0); ALT/SGPT 27 U/L (21-72); AST/SGOT 21 U/L (17-59); BLOOD UREA NITROGEN 18 mg/dL (9-20); CALCIUM 8.7 mg/dl (8.6-10.4); GFR NON-AFRICAN AMERICAN > 60
[2018-03-14] MEDS: Lactobacillus Acidophilus 500 MU Cap PO SCH (10:27)
[2018-03-14] MEDS: Multiple Vitamins Tab PO SCH (10:27)
[2018-03-14] MEDS: Meropenem IV 1 gm in NS 50 ML IVPB SCH (14:20)
[2018-03-14 16:15] VITALS: BP 163/90; PULSE 73; TEMP 98; O2SAT 98
== END 2018-03-14 16:38 | disposition home or self-care (01) | DRG 155 ==
LOC: C.ER 13:47 → C.9E 19:39 → C.3T 21:13 → C.5S 03-08 04:44 → OBSVTOIN 03-11 15:18 → C.5S 03-11 18:12
PROVIDERS: ADMIT Internal Medicine; ATTEND Internal Medicine
PROC: 02HV33Z Insertion of Infusion Device into Superior Vena Cava, Percutaneous Approach (ICD-10-PCS; principal; 2018-03-11)
DX: K11.5 Sialolithiasis (principal); I69.351 Hemiplegia and hemiparesis following cerebral infarction affecting right dominant side; N39.0 Urinary tract infection, site not specified; F10.230 Alcohol dependence with withdrawal, uncomplicated; K11.20 Sialoadenitis, unspecified; J39.8 Other specified diseases of upper respiratory tract; I10 Essential (primary) hypertension; I48.0 Paroxysmal atrial fibrillation; J44.9 Chronic obstructive pulmonary disease, unspecified; B96.20 Unspecified Escherichia coli [E. coli] as the cause of diseases classified elsewhere; F17.210 Nicotine dependence, cigarettes, uncomplicated; Y90.9 Presence of alcohol in blood, level not specified; R56.9 Unspecified convulsions